=== PATIENT | male | born 1980 | race Hispanic/Latino ===

== ENCOUNTER 2017-04-26 12:57 | Emergency (ER) | payer OTHER ==
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
[2017-04-26 13:58] VITALS: BMI 23.0
[2017-04-26 14:00] LABS: URINE BILIRUBIN NEGATIVE (NEGATIVE); URINE BLOOD NEGATIVE (NEGATIVE); URINE GLUCOSE (UA) NEGATIVE (NEGATIVE); URINE KETONE NEGATIVE (NEGATIVE); URINE LEUKOCYTE ESTERASE NEGATIVE Leu/uL (NEGATIVE); URINE PROTEIN NEGATIVE mg/dL (<30 mg/dL); URINE UROBILINOGEN 0.2 E.U./dL (<1 E.U./dL)
[2017-04-26 14:10] LABS: URINE APPEARANCE CLEAR (CLEAR); URINE COLOR YELLOW (YELLOW)
[2017-04-26 14:13] LABS: BASO # 0.01 K/mm3 (0.0-2.0); BASO % 0.2 % (0.0-3.0); EOS # 0.1 (0.0-0.7); EOS % 0.8 % (1.5-5.0); GRAN # 4.08 (1.4-6.5); GRAN % 69.2 % (50.0-68.0); HEMATOCRIT 42.5 % (42.0-52.0); LYMPH # 1.4 (1.2-3.4); LYMPH % 24.4 % (22.0-35.0); MEAN CELL VOLUME 93.2 fl (80.0-105.0); MEAN CORPUSCULAR HGB CONC 34.4 g/dl (31.0-37.0); MEAN PLATELET VOLUME 8.9 fl (7.0-11.0); MONO # 0.3 (0.1-0.6); MONO % 5.4 % (1.0-6.0); RED CELL DISTRIBUTION WIDTH 15.2 % (11.5-14.5); WHITE BLOOD COUNT 5.9 10^3/ul (4.5-11.0)
[2017-04-26 14:28] LABS: ALB/GLOB RATIO 1.5 (1.1-1.8); ALKALINE PHOSPHATASE 66 U/L (38-126); ALT/SGPT 39 U/L (7-56); AST/SGOT 25 U/L (17-59); BILIRUBIN,TOTAL 0.5 mg/dL (0.2-1.3); BLOOD UREA NITROGEN 7 mg/dL (7-21); CALCIUM 9.2 mg/dL (8.4-10.5); CARBON DIOXIDE 25 mmol/L (21-33); CHLORIDE 112 mmol/L (98-107); GFR AFRICAN-AMERICAN > 60; GLUCOSE,RANDOM 90 mg/dL (70-110); LIPASE 48 U/L (23-300); POTASSIUM 3.5 mmol/L (3.6-5.0); SODIUM 149 mmol/L (132-148); TOTAL PROTEIN 7.6 g/dL (5.8-8.3)
[2017-04-26] MEDS ORDERED: Potassium Chloride 20 mEq ER Tab PO STA (15:35)
--- NOTE | 2017-04-26 16:20 | RAD ---
PROCEDURE: Right Hand Radiographs. HISTORY: trauma COMPARISON: None. FINDINGS: BONES: Normal. No fracture. JOINTS: Normal. No osteoarthritic changes. SOFT TISSUES: Normal. OTHER FINDINGS: None. IMPRESSION: Normal right hand radiographs.
[2017-04-26] MEDS ORDERED: Amoxicillin-Clav 875-125 mg Tab PO STA (16:24)
[2017-04-26] MEDS ORDERED: TDAP Vaccine 0.5 mL Syr IM ONE (17:18)
--- NOTE | 2017-04-26 19:40 | ED PDOC ---
Physical Exam Vital Signs Temp Pulse Resp BP Pulse Ox 04/27/17 04:31 82 17 125/64 98 04/26/17 16:01 80 18 98/57 L 100 04/26/17 14:18 97.9 F 90 17 126/67 99 Medical Decision Making ED Course and Treatment: 04/26/17 19:00 Case endorsed from pending sobriety and PES evaluation. HPI noted. Pt apparently intoxicated, belligerent,violent in ED and flight risk requiring restraints/sedation. Pt. expressed wanting to kill anyone near him. Pt. currently stable resting comfortably. 04/27/17 04:38 Patient was cleared by ALAN Elise earlier but requested to sleep in ED a while longer. Patient is sober with steady gait. Patient is ready and stable for discharge.Pt.still refused any discharge instructions or treatment for his hand wound abrasion - Lab Interpretations Lab Results: 04/26/17 13:54 04/26/17 13:54 Lab Results 04/26/17 13:54: Magnesium 2.5 H 04/26/17 13:54: Alcohol, Quantitative 247 H 04/26/17 13:54: Sodium 149 H, Potassium 3.5 L, Chloride 112 H, Carbon Dioxide 25 , Anion Gap 15, BUN 7, Creatinine 0.6 L, Est GFR ( Amer) > 60, Est GFR ( Non-Af Amer) > 60, Random Glucose 90, Calcium 9.2, Total Bilirubin 0.5, AST 25, ALT 39, Alkaline Phosphatase 66, Total Protein 7.6, Albumin 4.6, Globulin 3.0, Albumin/Globulin Ratio 1.5, Lipase 48 04/26/17 13:54: WBC 5.9, RBC 4.56, Hgb 14.6, Hct 42.5, MCV 93.2, MCH 32.0, MCHC 34.4, RDW 15.2 H, Plt Count 226, MPV 8.9, Gran % 69.2 H, Lymph % (Auto) 24.4, [place] % (Auto) 5.4, Eos % (Auto) 0.8 L, Baso % (Auto) 0.2, Gran # 4.08, Lymph # 1.4, [place] # 0.3, Eos # 0.1, Baso # 0.01 04/26/17 13:52: Urine Opiates Screen Negative, Urine Methadone Screen Negative, Ur Barbiturates Screen Negative, Ur Phencyclidine Scrn Negative, Ur Amphetamines Screen Negative, U Benzodiazepines Scrn Negative, U Oth Cocaine Metabols Negative, U Cannabinoids Screen Positive H 04/26/17 13:52: Urine Color Yellow, Urine Appearance Clear, Urine pH 6.0, Ur Specific [place] <= 1.005, Urine Protein Negative, Urine Glucose (UA) Negative, Urine Ketones Negative, Urine Blood Negative, Urine Nitrate Negative, Urine Bilirubin Negative, Urine Urobilinogen 0.2, Ur Leukocyte Esterase Negative - RAD Interpretation Radiology Orders: 04/26/17 14:15 HAND RIGHT 3 VIEWS [RAD] Stat - Medication Orders Current Medication Orders: Discontinued Medications Amoxicillin/Clavulanate Potassium (Augmentin 875 Mg-125 Mg Tab) 1 tab PO STAT STA PRN Reason: Protocol Stop: 04/26/17 16:25 Last Admin: 04/26/17 17:36 Dose: Haloperidol Lactate (Haldol) 5 mg IM STAT STA PRN Reason: Protocol Stop: 04/26/17 13:23 Last Admin: 04/26/17 13:27 Dose: 5 mg IM Administration Charges Document 04/26/17 13:27 EQ (Rec: 04/26/17 13:27 EQ [id number]) Injection Site MAR Injection Site Right Vastus Lateralis Charges for Administration # of IM Administrations 1 Lorazepam (Ativan) 2 mg IM ONCE ONE PRN Reason: Protocol Stop: 04/26/17 13:24 Last Admin: 04/26/17 13:27 Dose: 2 mg IM Administration Charges Document 04/26/17 13:27 EQ (Rec: 04/26/17 13:27 EQ [id number]) Injection Site MAR Injection Site Right Vastus Lateralis Charges for Administration # of IM Administrations 1 Potassium Chloride (K-Dur 20 Meq Er Tab) 20 meq PO STAT STA Stop: 04/26/17 15:36 Last Admin: 04/26/17 16:06 Dose: Not Given Non-Admin Reason: Patient Refused Tetanus/Reduced Diphtheria/Acell Pertussis (Boostrix Vaccine Inj) 0.5 ml IM .ONCE ONE Stop: 04/26/17 17:19 Last Admin: 04/26/17 17:35 Dose: 0.5 ml MAR Immunization Data Document 04/26/17 17:35 SRE (Rec: 04/26/17 17:35 SRE [id number]) Immunization Data Vaccine Information Sheet Given Yes Immunization Registry Document 04/26/17 17:35 SRE (Rec: 04/26/17 17:35 SRE [id number]) Immunization Registry Consent Date 04/26/17 Disposition/Present on Arrival - Present on Arrival Any Indicators Present on Arrival: No History of DVT/PE: No History of Uncontrolled Diabetes: No Urinary Catheter: No History of Decub. Ulcer: No History Surgical Site Infection Following: None - Disposition Have Diagnosis and Disposition been Completed?: Yes Diagnosis: Alcohol abuse, Hand injury Disposition: HOME/ ROUTINE Disposition Time: 04:38 Patient Plan: Discharge Patient Problems: Current Active Problems Problem Status Onset Alcohol abuse Acute Hand injury Acute Condition: STABLE Discharge Instructions (ExitCare): Alcohol Intoxication (ED), Abrasion (ED) Additional Instructions: Follow up with your doctor this week Prescriptions: Amoxicillin/Clavulanate [Augmentin 875 MG-125 MG] 1 tab PO DAILY 10 Days #20 tab Referrals: Yakelin Madera, [Primary Care Provider] - Follow up with primary Alcoholics Anonymous [Outside] - Follow up with primary
[2017-04-27 04:32] VITALS: BP 125/64; PULSE 82; RESP 17; O2SAT 98
[2017-04-27 04:47] VITALS: TEMP 98
--- NOTE | 2017-04-27 08:12 | CON ---
DATE: 04/26/2017 HISTORY OF PRESENT ILLNESS: The patient is 36-year-old male reports with history of schizoaffective disorder. The patient was brought in by police because the patient was ambulating with unsteady gait and the patient was agitated in the community. This senior medical writer responded to ninoska valentin. The patient was agitated in the process of restrain. The patient was screaming and yelling that he wants to kill himself and kill everybody. The patient also reports that he cannot trust nobody and everybody is against him. This senior medical writer reviewed the previous history. The patient was admitted to the Psychiatric Inpatient Unit in 11/2016 at [facility]. The patient was on Seroquel and Wellbutrin in the past and also, the patient has history of substance abuse. At the moment of interview, there is no option to have meaningful conversation because of the patient's condition. Discussed with the medical staff and discussed with the nursing staff. LABORATORY DATA: Labs reviewed. Sodium is 149, potassium 3.5. Urine toxicology was positive for cannabis and alcohol . MENTAL STATUS EXAMINATION: The patient is agitated. Poor personal hygiene. No eye contact. The patient is screaming and yelling. The patient said "I want to kill everybody. I want to kill myself. I cannot trust you. People against me, they want to poison me." Thought process is disorganized, circumstantial and tangential. Speech was also productive and loud. Insight and judgement are impaired. Impulses are not predictable. IMPRESSION: Per history, the patient has schizoaffective disorder, polysubstance abuse and dependence. PLAN: The patient was medicated. The patient needs to be reevaluated once his hope up. Most likely, the patient needs to have psychiatric admission or screening by [facility]. Should you have any questions, give me a call back. Thank you very much for letting me participate in the care of your patient. Jesica Wheatley MD
== END 2017-04-27 04:47 | disposition home or self-care (01) ==
LOC: ED 12:57
DX: F10.10 Alcohol abuse, uncomplicated (principal); S69.91XA Unspecified injury of right wrist, hand and finger(s), initial encounter; X58.XXXA Exposure to other specified factors, initial encounter; R45.850 Homicidal ideations; F17.210 Nicotine dependence, cigarettes, uncomplicated; Z21 Asymptomatic human immunodeficiency virus [HIV] infection status; Z23 Encounter for immunization
CPT/HCPCS: 73130; 80053; 80320; 80324; 80345; 80346; 80349; 80353; 80358; 80361; 81003; 83690; 83735; 83992; 85025; 90471; 90715; 90791; 96372; 99284; J1630; J2060

== ENCOUNTER 2017-05-05 17:08 | Emergency (ER) | payer OTHER ==
[2017-05-05 17:24] VITALS: BMI 24.3
--- NOTE | 2017-05-05 17:40 | ED PDOC ---
Arrival/HPI - General Time Seen by Provider: 05/05/17 17:18 Historian: Patient - History of Present Illness Narrative History of Present Illness (Text): 05/05/17 17:44 A 36 year old male, whose past medical history includes alcohol and drug abuse, depression and HIV positive, was brought in by EMS to the emergency department for alcohol intoxication. Patient denies any complaints at this time. Symptom Onset: Sudden Symptom Course: Unchanged Activities at Onset: Rest Associated Symptoms (Text): none Past Medical History - Provider Review Nursing Documentation Reviewed: Yes - Past History Past History: No Previous - Infectious Disease Hx of Infectious Diseases: None - Tetanus Immunization Tetanus Immunization: Up to Date, Unknown - Past Medical History Past Medical History: No Previous - Cardiac Hx Hypertension: No - Pulmonary Hx Asthma: Yes Hx Bronchitis: Yes - Neurological Hx Seizures: No - HEENT Hx HEENT Disorder: No - Renal Hx Renal Disorder: No - Endocrine/Metabolic Hx Endocrine Disorders: No - Hematological/Oncological Hx Blood Disorders: Yes Hx Cancer: No Hx Hepatitis C: Yes - Integumentary Hx Dermatological Disorder: No - Musculoskeletal/Rheumatological Hx Musculoskeletal Disorders: Yes Hx Falls: No Other/Comment: SCIATICA - Gastrointestinal Hx Gastrointestinal Disorders: No - Genitourinary/Gynecological Hx Sexually Transmitted Diseases: No - Psychiatric Hx Anxiety: Yes Hx Bipolar Disorder: Yes Hx Depression: Yes (with suicide attempt since childhood (attempted hanging)) Hx Schizophrenia: Yes Hx Substance Use: Yes - Past Surgical History Past Surgical History: Unable to Obtain - Surgical History Other/Comment: tendon repair (right arm) - Anesthesia Hx Anesthesia: Yes Hx Anesthesia Reactions: No - Suicidal Assessment Feels Threatened In Home Enviroment: No Family/Social History - Physician Review Nursing Documentation Reviewed: Yes Family/Social History: No Known Family HX Smoking Status: Heavy Smoker > 10 Cigarettes Daily Hx Alcohol Use: Yes Amount per day: 5 Hx Substance Use: Yes Substance used: Marijuana Hx Substance Use Treatment: No Allergies/Home Meds Allergies/Adverse Reactions: Allergies aspirin Allergy (Verified 05/05/17 17:39) RASH Home Medications: Home Meds Medication Instructions Recorded Confirmed Unobtainable 05/05/17 05/05/17 Review of Systems - Physician Review All systems were reviewed & negative as marked: Yes - Review of Systems Constitutional: absent: Fevers Cardiovascular: absent: Chest Pain Physical Exam Vital Signs Reviewed: Yes Vital Signs Temp Pulse Resp BP Pulse Ox 05/05/17 18:26 98.3 F 82 18 111/78 97 Appearance: Positive for: Comfortable, Other (intoxicated) Pain Distress: None Mental Status: Positive for: Alert and Oriented X 3 - Systems Exam Head: Present: Atraumatic, Normocephalic Pupils: Present: PERRL Extroacular Muscles: Present: EOMI Conjunctiva: Present: Normal Mouth: Present: Moist Mucous Membranes Respiratory/Chest: Present: Clear to Auscultation, Good Air Exchange. No: Respiratory Distress, Accessory Muscle Use Cardiovascular: Present: Regular Rate and Rhythm, Normal S1, S2. No: Murmurs Abdomen: Present: Normal Bowel Sounds. No: Tenderness, Distention, Peritoneal Signs Upper Extremity: Present: Normal Inspection. No: Cyanosis, Edema Lower Extremity: Present: Normal Inspection. No: Edema Neurological: Present: GCS=15, CN II-XII Intact, Other (slurred speech; unsteady gait) Skin: Present: Warm, Dry, Normal Color, Other (upper right eyebrow superficial abrasion; abrasion of left pinky, healing). No: Rashes Psychiatric: Present: Alert, Oriented x 3, Intoxicated, Other (uncooperative behavior) Medical Decision Making ED Course and Treatment: 05/05/17 17:36 Impression: A 36 year old male with alcohol intoxication. Denies any physical complaints. Plan: -- Reassess and disposition Prior Visits: Notes and results from previous visits were reviewed. Patient was last seen in the emergency department on 04/26/17 for evaluation of alcohol intoxication. Progress Notes: Pending sobriety. 05/05/17 17:50 Patient is demonstrating increasing uncooperative behavior. Staff feels patient is a danger to himself with increased fall risk. Restraints and sedation ordered. 05/05/17 21:13 Patient is awake and stable, but still clinically intoxicated. 05/05/17 21:27 More cooperative but remains intoxicated. Discharge when sober. Stable. - Medication Orders Current Medication Orders: Discontinued Medications Ziprasidone (Geodon Inj) 20 mg IM STAT STA PRN Reason: Protocol Stop: 05/05/17 17:47 Last Admin: 05/05/17 17:54 Dose: 20 mg IM Administration Charges Document 05/05/17 17:54 RD (Rec: 05/05/17 17:55 RD [id number]) Injection Site MAR Injection Site Left Deltoid Charges for Administration # of IM Administrations 1 - Scribe Statement The provider has reviewed the documentation as recorded by the Zheng Cr Provider Scribe Attestation: All medical record entries made by the Scribe were at my direction and personally dictated by me. I have reviewed the chart and agree that the record accurately reflects my personal performance of the history, physical exam, medical decision making, and the department course for this patient. I have also personally directed, reviewed, and agree with the discharge instructions and disposition. Disposition/Present on Arrival - Present on Arrival Any Indicators Present on Arrival: No History of DVT/PE: No History of Uncontrolled Diabetes: No Urinary Catheter: No History Surgical Site Infection Following: None - Disposition Have Diagnosis and Disposition been Completed?: No Diagnosis: Alcohol abuse Disposition Time: 21:28 Condition: STABLE Referrals: PCP,NO [Primary Care Provider] - Follow up with primary
--- NOTE | 2017-05-05 21:37 | ED PDOC ---
Physical Exam Vital Signs Temp Pulse Resp BP Pulse Ox 05/06/17 03:09 79 18 122/70 99 05/06/17 00:43 72 17 112/59 L 99 05/05/17 20:40 67 18 102/55 L 100 05/05/17 18:26 98.3 F 82 18 111/78 97 Temperature: Afebrile Blood Pressure: Normal Pulse: Regular Respiratory Rate: Normal Appearance: Positive for: Well-Appearing, Non-Toxic, Comfortable Pain Distress: None Mental Status: Positive for: Alert and Oriented X 3 Finger Stick Blood Glucose: 67 Medical Decision Making ED Course and Treatment: 05/05/17 21:36 Case endorsed to me by Dr. Jonas. Patient is intoxicated and pending sobriety. 05/06/17 01:08 Patient's ex-GF, Maira ([phone]) who says she is the mother of his children, came to the ED and is saying that the patient called her earlier today and said he wanted to kill himself. Will order PES eval. 05/06/17 06:16 The patient was medically cleared for PES evaluation. He was seen by PES who discussed it with psychiatrist, Dr. White, who said the patient may be discharged and was given instructions to follow up with [facility] detox. Will d/c. - Lab Interpretations Lab Results: 05/06/17 01:46 05/06/17 01:46 Lab Results 05/06/17 02:35: Urine Opiates Screen Negative, Urine Methadone Screen Negative, Ur Barbiturates Screen Negative, Ur Phencyclidine Scrn Negative, Ur Amphetamines Screen Negative, U Benzodiazepines Scrn Negative, U Oth Cocaine Metabols Negative, U Cannabinoids Screen Positive H 05/06/17 02:35: Urine Color Yellow, Urine Appearance Clear, Urine pH 6.0, Ur Specific Worthing 1.020, Urine Protein Negative, Urine Glucose (UA) Negative, Urine Ketones Negative, Urine Blood Negative, Urine Nitrate Negative, Urine Bilirubin Negative, Urine Urobilinogen 0.2, Ur Leukocyte Esterase Negative 05/06/17 01:46: Alcohol, Quantitative 170 H 05/06/17 01:46: Salicylates < 1 L, Acetaminophen < 10.0 L 05/06/17 01:46: Sodium 148, Potassium 3.6, Chloride 110 H, Carbon Dioxide 27, Anion Gap 15, BUN 9, Creatinine 0.8, Est GFR ( Amer) > 60, Est GFR (Non- Af Amer) > 60, Random Glucose 67 L, Calcium 8.6, Total Bilirubin 0.5, AST 33, ALT 46, Alkaline Phosphatase 76, Total Creatine Kinase 234 H, CK-MB (CK-2) 2.9, CK-MB (CK-2) % Cancelled, Total Protein 7.1, Albumin 4.2, Globulin 3.0, Albumin/ Globulin Ratio 1.4, Lipase 43 05/06/17 01:46: WBC 5.8, RBC 4.57, Hgb 14.5, Hct 42.7, MCV 93.4, MCH 31.7, MCHC 34.0, RDW 15.8 H, Plt Count 230, MPV 8.7, Gran % 43.3 L, Lymph % (Auto) 43.9 H, Bartholomew % (Auto) 10.1 H, Eos % (Auto) 2.2, Baso % (Auto) 0.5, Gran # 2.52, Lymph # 2.6, Bartholomew # 0.6, Eos # 0.1, Baso # 0.03 - RAD Interpretation Narrative RAD Interpretations (Text): 05/06/17 02:07 CXR: nad as read by me. Radiology Orders: 05/06/17 01:06 CHEST PORTABLE [RAD] Stat - EKG Interpretation EKG Interpretation (Text): 05/06/17 02:07 NSR @ 81 with incomplete RBBB ; QRS is 106; unchanged from previous; normal intervals; normal axis; no ST/T changes. Interpreted by ED Physician: Yes Type: 12 lead EKG Comparison: Similar to previous EKG (04/19/17) - Medication Orders Current Medication Orders: Discontinued Medications Ziprasidone (Geodon Inj) 20 mg IM STAT STA PRN Reason: Protocol Stop: 05/05/17 17:47 Last Admin: 05/05/17 17:54 Dose: 20 mg IM Administration Charges Document 05/05/17 17:54 RD (Rec: 05/05/17 17:55 RD [id number]) Injection Site MAR Injection Site Left Deltoid Charges for Administration # of IM Administrations 1 - Scribe Statement The provider has reviewed the documentation as recorded by the Scribe Alaa Saadia Provider Scribe Attestation: All medical record entries made by the Scribe were at my direction and personally dictated by me. I have reviewed the chart and agree that the record accurately reflects my personal performance of the history, physical exam, medical decision making, and the department course for this patient. I have also personally directed, reviewed, and agree with the discharge instructions and disposition. Disposition/Present on Arrival - Present on Arrival Any Indicators Present on Arrival: No History of DVT/PE: No History of Uncontrolled Diabetes: No Urinary Catheter: No History of Decub. Ulcer: No History Surgical Site Infection Following: None - Disposition Have Diagnosis and Disposition been Completed?: Yes Diagnosis: Alcohol abuse, Drug abuse Disposition: HOME/ ROUTINE Disposition Time: 06:20 Patient Plan: Discharge Patient Problems: Current Active Problems Problem Status Onset Alcohol abuse Acute Condition: STABLE Additional Instructions: Stop alcohol use. Follow up with [facility]. Return to the emergency department if any new concerning symptoms. Referrals: PCP,NO [Primary Care Provider] - Follow up with primary
[2017-05-06 01:56] LABS: BASO # 0.03 K/mm3 (0.0-2.0); BASO % 0.5 % (0.0-3.0); EOS # 0.1 (0.0-0.7); EOS % 2.2 % (1.5-5.0); GRAN # 2.52 (1.4-6.5); GRAN % 43.3 % (50.0-68.0); HEMATOCRIT 42.7 % (42.0-52.0); LYMPH # 2.6 (1.2-3.4); LYMPH % 43.9 % (22.0-35.0); MEAN CELL VOLUME 93.4 fl (80.0-105.0); MEAN CORPUSCULAR HEMOGLOBIN 31.7 pg (25.0-35.0); MEAN PLATELET VOLUME 8.7 fl (7.0-11.0); MONO # 0.6 (0.1-0.6); MONO % 10.1 % (1.0-6.0); RED CELL DISTRIBUTION WIDTH 15.8 % (11.5-14.5); WHITE BLOOD COUNT 5.8 10^3/ul (4.5-11.0)
[2017-05-06 02:09] LABS: ALB/GLOB RATIO 1.4 (1.1-1.8); ALKALINE PHOSPHATASE 76 U/L (38-126); ALT/SGPT 46 U/L (7-56); AST/SGOT 33 U/L (17-59); BILIRUBIN,TOTAL 0.5 mg/dL (0.2-1.3); BLOOD UREA NITROGEN 9 mg/dL (7-21); CALCIUM 8.6 mg/dL (8.4-10.5); CARBON DIOXIDE 27 mmol/L (21-33); CHLORIDE 110 mmol/L (98-107); GFR AFRICAN-AMERICAN > 60; GLUCOSE,RANDOM 67 mg/dL (70-110); LIPASE 43 U/L (23-300); POTASSIUM 3.6 mmol/L (3.6-5.0); SODIUM 148 mmol/L (132-148); TOTAL PROTEIN 7.1 g/dL (5.8-8.3)
[2017-05-06 03:04] LABS: URINE BILIRUBIN NEGATIVE (NEGATIVE); URINE BLOOD NEGATIVE (NEGATIVE); URINE GLUCOSE (UA) NEGATIVE (NEGATIVE); URINE KETONE NEGATIVE (NEGATIVE); URINE LEUKOCYTE ESTERASE NEGATIVE Leu/uL (NEGATIVE); URINE PROTEIN NEGATIVE mg/dL (<30 mg/dL); URINE UROBILINOGEN 0.2 E.U./dL (<1 E.U./dL)
[2017-05-06 03:09] LABS: URINE APPEARANCE CLEAR (CLEAR); URINE COLOR YELLOW (YELLOW)
[2017-05-06 06:33] VITALS: BP 128/69; PULSE 80; RESP 16; TEMP 98.6; O2SAT 98
--- NOTE | 2017-05-06 08:50 | RAD ---
HISTORY: psych COMPARISON: 04/10/2014 FINDINGS: LUNGS: No active pulmonary disease. PLEURA: No significant pleural effusion identified, no pneumothorax apparent. CARDIOVASCULAR: Normal. OSSEOUS STRUCTURES: No significant abnormalities. VISUALIZED UPPER ABDOMEN: Normal. OTHER FINDINGS: None. IMPRESSION: No active disease.
--- NOTE | 2017-05-07 09:37 | CARD ---
APPROVED REPORT EKG Measurement Heart [id number] <Conclusion> Normal sinus rhythm Incomplete right bundle branch block Prolonged QTc, new
== END 2017-05-06 06:35 | disposition home or self-care (01) ==
LOC: ED 17:08
DX: F10.129 Alcohol abuse with intoxication, unspecified (principal); F19.10 Other psychoactive substance abuse, uncomplicated; F17.210 Nicotine dependence, cigarettes, uncomplicated
CPT/HCPCS: 71010; 80053; 80320; 80324; 80329; 80345; 80346; 80349; 80353; 80358; 80361; 81003; 82550; 82553; 83690; 83992; 85025; 93005; 96372; 99285; J3486

== ENCOUNTER 2017-05-06 20:01 | Emergency (ER) | payer OTHER ==
[2017-05-06 20:01] VITALS: BMI 24.3
--- NOTE | 2017-05-06 20:30 | ED PDOC ---
Arrival/HPI - General Chief Complaint: Alcohol Ingestion Time Seen by Provider: 05/06/17 20:04 Historian: Patient, EMS, Police - History of Present Illness Narrative History of Present Illness (Text): 05/06/17 20:10 A 36 year old male, whose past medical history includes etoh and marijuana abuse , presents to the emergency department for public intoxication via EMS and [employer]. The patient was found resting in a public hallway. The patient has been treated to the emergency department on multiple occasions for the same symptoms. His last visit was yesterday with the same presentation. The patient admits to drinking and states he wants to leave. He denies any complaints at this time. HPI & ROS limitations due to patient's state of intoxication. Time/Duration: Prior to Arrival Symptom Onset: Gradual Symptom Course: Other Activities at Onset: Other (drinking ) Context: Other (public ) Past Medical History - Provider Review Nursing Documentation Reviewed: Yes - Past History Past History: No Previous - Infectious Disease Hx of Infectious Diseases: None - Tetanus Immunization Tetanus Immunization: Up to Date, Unknown - Past Medical History Past Medical History: No Previous - Cardiac Hx Cardiac Disorders: No Hx Hypertension: No - Pulmonary Hx Tuberculosis: No - Neurological HX Cerebrovascular Accident: No Hx Seizures: No - HEENT Hx HEENT Disorder: No - Renal Hx Renal Disorder: No - Endocrine/Metabolic Hx Endocrine Disorders: No - Hematological/Oncological Hx Cancer: No - Integumentary Hx Dermatological Disorder: No - Musculoskeletal/Rheumatological Hx Musculoskeletal Disorders: Yes Hx Falls: No Other/Comment: SCIATICA - Gastrointestinal Hx Gastrointestinal Disorders: No - Genitourinary/Gynecological Hx Sexually Transmitted Diseases: No - Psychiatric Hx Anxiety: Yes Hx Bipolar Disorder: Yes Hx Depression: Yes (with suicide attempt since childhood (attempted hanging)) Hx Schizophrenia: Yes Hx Substance Use: Yes - Past Surgical History Past Surgical History: Unable to Obtain - Surgical History Other/Comment: tendon repair (right arm) - Anesthesia Hx Anesthesia: Yes Hx Anesthesia Reactions: No - Suicidal Assessment Feels Threatened In Home Enviroment: No Family/Social History - Physician Review Nursing Documentation Reviewed: Yes Family/Social History: No Known Family HX Smoking Status: Heavy Smoker > 10 Cigarettes Daily Hx Alcohol Use: Yes Amount per day: 5 Hx Substance Use: Yes Substance used: Marijuana Hx Substance Use Treatment: No Allergies/Home Meds Allergies/Adverse Reactions: Allergies aspirin Allergy (Verified 05/05/17 17:39) RASH Home Medications: Home Meds Medication Instructions Recorded Confirmed Unobtainable 05/05/17 05/07/17 Review of Systems - Physician Review All systems were reviewed & negative as marked: Yes - Review of Systems Systems not reviewed;Unavailable: Intoxicated Constitutional: absent: Fevers Respiratory: absent: SOB Cardiovascular: absent: Chest Pain Gastrointestinal: absent: Abdominal Pain Psychiatric: absent: Suicidal Ideation Physical Exam - Physical Exam Physical Exam Limitations: Intoxication Vital Signs Reviewed: Yes Vital Signs Temp Pulse Resp BP Pulse Ox 05/07/17 03:00 80 20 110/76 96 05/06/17 23:32 70 18 106/62 100 05/06/17 20:01 98.9 F 68 20 126/73 100 - Systems Exam Head: Present: Atraumatic, Normocephalic Pupils: Present: PERRL Extroacular Muscles: Present: EOMI Conjunctiva: Present: Normal Mouth: Present: Moist Mucous Membranes Neck: Present: Normal Range of Motion Respiratory/Chest: Present: Clear to Auscultation, Good Air Exchange. No: Respiratory Distress, Accessory Muscle Use Cardiovascular: Present: Regular Rate and Rhythm, Normal S1, S2. No: Murmurs Abdomen: Present: Normal Bowel Sounds. No: Tenderness, Distention, Peritoneal Signs Back: Present: Normal Inspection Upper Extremity: Present: Normal Inspection. No: Cyanosis, Edema Lower Extremity: Present: Normal Inspection. No: Edema Neurological: Present: GCS=15, CN II-XII Intact, Speech Normal Skin: Present: Warm, Dry, Normal Color. No: Rashes Psychiatric: Present: Alert, Oriented x 3, Normal Insight, Normal Concentration Medical Decision Making ED Course and Treatment: 05/06/17 20:20 Impression: A 36 year old male brought in for intoxication. Differential Diagnosis included but are not limited to: alcohol intoxication Plan: -- Ativan, Haldol -- Restraints -- Reassess and disposition Prior Visits: Notes and results from previous visits were reviewed. Patient was last seen in the emergency department on Progress Notes: 05/06/17 20:22 The patient is attempting to leave and is verbally abusive. He had to be placed in restraints and sedated for his own protection. 05/07/17 07:08 Pt. is awake,alert sober with steady gait. - Medication Orders Current Medication Orders: Discontinued Medications Haloperidol Lactate (Haldol) 5 mg IM STAT STA PRN Reason: Protocol Stop: 05/06/17 20:19 Last Admin: 05/06/17 20:26 Dose: 5 mg IM Administration Charges Document 05/06/17 20:26 CELE (Rec: 05/06/17 20:26 CELE [id number]) Injection Site MAR Injection Site Left Deltoid Charges for Administration # of IM Administrations 1 Lorazepam (Ativan) 2 mg IM ONCE ONE Stop: 05/06/17 20:19 Last Admin: 05/06/17 20:26 Dose: 2 mg IM Administration Charges Document 05/06/17 20:26 CELE (Rec: 05/06/17 20:26 CELE [id number]) Injection Site MAR Injection Site Left Deltoid Charges for Administration # of IM Administrations 1 - Scribe Statement The provider has reviewed the documentation as recorded by the Scribe Janice Skaggs Provider Scribe Attestation: All medical record entries made by the Scribe were at my direction and personally dictated by me. I have reviewed the chart and agree that the record accurately reflects my personal performance of the history, physical exam, medical decision making, and the department course for this patient. I have also personally directed, reviewed, and agree with the discharge instructions and disposition. Disposition/Present on Arrival - Present on Arrival Any Indicators Present on Arrival: No History of DVT/PE: No History of Uncontrolled Diabetes: No Urinary Catheter: No History of Decub. Ulcer: No History Surgical Site Infection Following: None - Disposition Have Diagnosis and Disposition been Completed?: Yes Diagnosis: Alcohol intoxication Disposition: HOME/ ROUTINE Disposition Time: 07:07 Patient Plan: Discharge Condition: STABLE Discharge Instructions (ExitCare): Alcohol Intoxication (ED) Referrals: Yakelin Madera, [Primary Care Provider] - Follow up with primary Alcoholics Anonymous [Outside] - Follow up with primary Forms: [employer] (Swazi)
[2017-05-06 21:46] VITALS: TEMP 98.9
[2017-05-07 07:10] VITALS: RESP 18
[2017-05-07 07:15] VITALS: BP 123/75; PULSE 81; O2SAT 99
== END 2017-05-07 07:20 | disposition home or self-care (01) ==
LOC: ED 20:01
DX: F10.129 Alcohol abuse with intoxication, unspecified (principal); F17.210 Nicotine dependence, cigarettes, uncomplicated
CPT/HCPCS: 96372; 99285; J1630; J2060

== ENCOUNTER 2017-05-07 15:54 | Emergency (ER) | payer OTHER ==
[2017-05-07 16:07] VITALS: BMI 22.9
[2017-05-07 16:36] VITALS: TEMP 98.5
--- NOTE | 2017-05-07 18:24 | CT ---
EXAM: CT Head Without Intravenous Contrast CLINICAL HISTORY: 36 years old, male; Injury or trauma; Injury Head injury; Initial encounter; Concussion / head injury TECHNIQUE: Axial computed tomography images of the head/brain without intravenous contrast. All CT scans at this facility use one or more dose reduction techniques, viz.: automated exposure control; ma/kV adjustment per patient size (including targeted exams where dose is matched to indication; i.e. head); or iterative reconstruction technique. COMPARISON: No relevant prior studies available. FINDINGS: Brain: No intracranial hemorrhage. No mass. No edema. Ventricles: No hydrocephalus. Bones/joints: No acute fracture. Soft tissues: Unremarkable. Sinuses: Scattered minimal mucosal thickening. Mastoid air cells: No mastoid effusion. Orbits: Unremarkable as visualized. IMPRESSION: 1. No intracranial hemorrhage. 2. Incidental/non-acute findings are described above.
[2017-05-07 22:36] VITALS: RESP 18
[2017-05-08 00:01] VITALS: BP 131/89; PULSE 92; O2SAT 99
--- NOTE | 2017-05-08 00:11 | ED PDOC ---
Arrival/HPI - General Chief Complaint: Alcohol Ingestion Time Seen by Provider: 05/07/17 15:58 Historian: Patient - History of Present Illness Narrative History of Present Illness (Text): 05/07/17 23:59 36yo male biba for alcohol intoxication. Per EMS patient was picked up from the street, intoxicated. Patient was intoxicated, lethargic on arrival. He was unable to answer any question. Pt is known to the ED for alcohol abuse. He has been seen here multiple times for same complaint. His last visit was yesterday. Past Medical History - Provider Review Nursing Documentation Reviewed: Yes - Past History Past History: No Previous - Infectious Disease Hx of Infectious Diseases: None - Tetanus Immunization Tetanus Immunization: Up to Date, Unknown - Past Medical History Past Medical History: No Previous - Cardiac Hx Cardiac Disorders: No Hx Hypertension: No - Pulmonary Hx Tuberculosis: No - Neurological HX Cerebrovascular Accident: No Hx Seizures: No - HEENT Hx HEENT Disorder: No - Renal Hx Renal Disorder: No - Endocrine/Metabolic Hx Endocrine Disorders: No - Hematological/Oncological Hx Cancer: No - Integumentary Hx Dermatological Disorder: No - Musculoskeletal/Rheumatological Hx Musculoskeletal Disorders: Yes Hx Falls: Yes Other/Comment: SCIATICA - Gastrointestinal Hx Gastrointestinal Disorders: No - Genitourinary/Gynecological Hx Sexually Transmitted Diseases: No - Psychiatric Hx Anxiety: Yes Hx Bipolar Disorder: Yes Hx Depression: Yes (with suicide attempt since childhood (attempted hanging)) Hx Schizophrenia: Yes Hx Substance Use: Yes - Past Surgical History Past Surgical History: Unable to Obtain - Surgical History Other/Comment: tendon repair (right arm) - Anesthesia Hx Anesthesia: Yes Hx Anesthesia Reactions: No - Suicidal Assessment Feels Threatened In Home Enviroment: No Family/Social History - Physician Review Nursing Documentation Reviewed: Yes Family/Social History: Unknown Family HX Smoking Status: Heavy Smoker > 10 Cigarettes Daily Hx Alcohol Use: Yes (ETOH) Frequency of alcohol use: Daily Amount per day: 5 Hx Substance Use: Yes Substance used: Marijuana Hx Substance Use Treatment: No Allergies/Home Meds Allergies/Adverse Reactions: Allergies aspirin Allergy (Verified 05/07/17 16:07) RASH Home Medications: Home Meds Medication Instructions Recorded Confirmed Unobtainable 05/05/17 05/07/17 Review of Systems - Review of Systems Systems not reviewed;Unavailable: Intoxicated Physical Exam Vital Signs Reviewed: Yes Vital Signs Temp Pulse Resp BP Pulse Ox 05/08/17 00:00 92 H 18 131/89 99 05/07/17 22:15 67 18 114/60 100 05/07/17 18:21 79 16 106/65 100 05/07/17 16:06 98.5 F 87 16 127/88 97 Temperature: Afebrile Blood Pressure: Normal Pulse: Regular Respiratory Rate: Normal Appearance: Positive for: Well-Appearing, Non-Toxic, Comfortable Pain Distress: None Mental Status: Positive for: Alert and Oriented X 3 Finger Stick Blood Glucose: 80 - Systems Exam Head: Present: Atraumatic, Normocephalic Pupils: Present: PERRL Extroacular Muscles: Present: EOMI, Other (bruise with superficial abrasion noted on right norah ortbital/forehead area. No swelling) Conjunctiva: Present: Normal Mouth: Present: Moist Mucous Membranes Neck: Present: Normal Range of Motion Respiratory/Chest: Present: Clear to Auscultation, Good Air Exchange. No: Respiratory Distress, Accessory Muscle Use Cardiovascular: Present: Regular Rate and Rhythm, Normal S1, S2. No: Murmurs Abdomen: Present: Normal Bowel Sounds. No: Tenderness, Distention, Peritoneal Signs Back: Present: Normal Inspection Upper Extremity: Present: Normal Inspection. No: Cyanosis, Edema Lower Extremity: Present: Normal Inspection. No: Edema Neurological: Present: GCS=15, CN II-XII Intact, Speech Normal Skin: Present: Warm, Dry, Normal Color. No: Rashes Psychiatric: Present: Intoxicated Medical Decision Making ED Course and Treatment: 05/08/17 00:12 PT slept comfortably in ED. He was hemodynamically stable. He was observed in ED for sobriety. He woke up and asked for food. He was fed. He asked for anxiolytic and Ativan was given. He went back to sleep. On waking up he was noted to be stable with steady gait. he asked to be discharged home and was discharged. - RAD Interpretation Radiology Orders: 05/07/17 17:21 HEAD W/O CONTRAST [CT] Stat - Medication Orders Current Medication Orders: Discontinued Medications Acetaminophen (Tylenol 325mg Tab) 650 mg PO STAT STA Stop: 05/07/17 21:36 Last Admin: 05/07/17 21:43 Dose: 650 mg MAR Pain/Vitals Document 05/07/17 21:43 RD (Rec: 05/07/17 21:43 RD [id number]) Pain Reassessment Is This A Pain ReAssessment? No Sleep Is patient sleeping during reassessment? No Presence of Pain Presence of Pain Yes Location Left, Right or Bilateral Right Pain Location Body Site Arm Lorazepam (Ativan) 1 mg IM ONCE ONE PRN Reason: Protocol Stop: 05/07/17 21:13 Last Admin: 05/07/17 21:23 Dose: 1 mg IM Administration Charges Document 05/07/17 21:23 RD (Rec: 05/07/17 21:23 RD [id number]) Injection Site MAR Injection Site Right Deltoid Charges for Administration # of IM Administrations 1 Disposition/Present on Arrival - Present on Arrival Any Indicators Present on Arrival: No History of DVT/PE: No History of Uncontrolled Diabetes: No Urinary Catheter: No History of Decub. Ulcer: No History Surgical Site Infection Following: None - Disposition Have Diagnosis and Disposition been Completed?: Yes Diagnosis: Alcohol intoxication Disposition: HOME/ ROUTINE Disposition Time: 00:05 Patient Plan: Discharge Condition: STABLE Discharge Instructions (ExitCare): Alcohol Intoxication (ED) Additional Instructions: Stop drinking alcohol and join AA Return to ED for new symptoms Referrals: Appear Heredomo Madera, [Primary Care Provider] - Follow up with primary Forms: [employer] (Uzbek)
== END 2017-05-08 00:15 | disposition home or self-care (01) ==
LOC: ED 15:54
DX: F10.129 Alcohol abuse with intoxication, unspecified (principal); F17.210 Nicotine dependence, cigarettes, uncomplicated
CPT/HCPCS: 70450; 90791; 96372; 99285; J2060

== ENCOUNTER 2017-05-09 13:44 | Emergency (ER) | payer OTHER ==
[2017-05-09 13:45] VITALS: BMI 22.9
[2017-05-09] MEDS ORDERED: DiphenhydrAMINE 50 mg/ml Inj IM STA (14:14)
--- NOTE | 2017-05-09 14:51 | RAD ---
HISTORY: psych COMPARISON: 05/06/2017 FINDINGS: LUNGS: No active pulmonary disease. PLEURA: No significant pleural effusion identified, no pneumothorax apparent. CARDIOVASCULAR: Normal. OSSEOUS STRUCTURES: No significant abnormalities. VISUALIZED UPPER ABDOMEN: Normal. OTHER FINDINGS: None. IMPRESSION: No active disease.
[2017-05-09 14:56] LABS: URINE BILIRUBIN NEGATIVE (NEGATIVE); URINE BLOOD TRACE-INTACT (NEGATIVE); URINE GLUCOSE (UA) NEGATIVE (NEGATIVE); URINE KETONE NEGATIVE (NEGATIVE); URINE LEUKOCYTE ESTERASE NEGATIVE Leu/uL (NEGATIVE); URINE PROTEIN TRACE mg/dL (<30 mg/dL); URINE UROBILINOGEN 0.2 E.U./dL (<1 E.U./dL)
[2017-05-09 15:01] LABS: URINE APPEARANCE CLEAR (CLEAR); URINE COLOR YELLOW (YELLOW)
[2017-05-09 15:07] LABS: BASO # 0.02 K/mm3 (0.0-2.0); BASO % 0.4 % (0.0-3.0); EOS # 0.1 (0.0-0.7); EOS % 1.4 % (1.5-5.0); GRAN # 3.22 (1.4-6.5); GRAN % 63.1 % (50.0-68.0); HEMATOCRIT 40.5 % (42.0-52.0); LYMPH # 1.3 (1.2-3.4); LYMPH % 25.1 % (22.0-35.0); MEAN CELL VOLUME 92.5 fl (80.0-105.0); MEAN CORPUSCULAR HGB CONC 34.6 g/dl (31.0-37.0); MEAN PLATELET VOLUME 8.9 fl (7.0-11.0); MONO # 0.5 (0.1-0.6); RED CELL DISTRIBUTION WIDTH 15.5 % (11.5-14.5); WHITE BLOOD COUNT 5.1 10^3/ul (4.5-11.0)
--- NOTE | 2017-05-09 15:12 | ED PDOC ---
Arrival/HPI - General Chief Complaint: Alcohol Ingestion Time Seen by Provider: 05/09/17 14:05 Historian: Patient - History of Present Illness Narrative History of Present Illness (Text): 05/09/17 15:08 36 yo male with h/o alcohol abuse and psych, presents to the ED via EMS who state that he reported that he was going to jump out of the window and hurt himself with a knife prior to arrival. He states that he didn't say that and that the girl that reported this stated that because she is upset he won't be with her any longer. He denies any suicidal ideation or homicidal ideation. He denies any delusions or hallucinations. He admits to drinking alcohol today. Denies any drug use. PMD: None Past Medical History - Provider Review Nursing Documentation Reviewed: Yes - Past History Past History: No Previous - Infectious Disease Hx of Infectious Diseases: None - Tetanus Immunization Tetanus Immunization: Up to Date, Unknown - Past Medical History Past Medical History: No Previous - Cardiac Hx Cardiac Disorders: No Hx Hypertension: No - Pulmonary Hx Respiratory Disorders: No Hx Tuberculosis: No - Neurological HX Cerebrovascular Accident: No Hx Seizures: No - HEENT Hx HEENT Disorder: No - Renal Hx Renal Disorder: No - Endocrine/Metabolic Hx Endocrine Disorders: No - Hematological/Oncological Hx Cancer: No - Integumentary Hx Dermatological Disorder: No - Musculoskeletal/Rheumatological Hx Musculoskeletal Disorders: Yes Hx Falls: Yes Other/Comment: SCIATICA - Gastrointestinal Hx Gastrointestinal Disorders: No - Genitourinary/Gynecological Hx Sexually Transmitted Diseases: No - Psychiatric Hx Anxiety: Yes Hx Bipolar Disorder: Yes Hx Depression: Yes (with suicide attempt since childhood (attempted hanging)) Hx Schizophrenia: Yes Hx Substance Use: Yes - Past Surgical History Past Surgical History: Unable to Obtain - Surgical History Other/Comment: tendon repair (right arm) - Anesthesia Hx Anesthesia: Yes Hx Anesthesia Reactions: No - Suicidal Assessment Feels Threatened In Home Enviroment: No Family/Social History - Physician Review Nursing Documentation Reviewed: Yes Family/Social History: Unknown Family HX Smoking Status: Heavy Smoker > 10 Cigarettes Daily Hx Alcohol Use: Yes (ETOH) Amount per day: 5 Hx Substance Use: Yes Substance used: Marijuana Hx Substance Use Treatment: No Allergies/Home Meds Allergies/Adverse Reactions: Allergies aspirin Allergy (Verified 05/07/17 16:07) RASH Home Medications: Home Meds Medication Instructions Recorded Confirmed No Known Home Med 05/09/17 05/09/17 Review of Systems - Physician Review All systems were reviewed & negative as marked: Yes - Review of Systems Constitutional: Normal Eyes: Normal ENT: Normal Respiratory: Normal Cardiovascular: Normal Gastrointestinal: Normal Genitourinary Male: Normal Musculoskeletal: Normal Skin: Normal Neurological: Normal Endocrine: Normal Hemo/Lymphatic: Normal Psychiatric: Suicidal Ideation (reported by EMS). absent: Anxiety, Depression Physical Exam Vital Signs Reviewed: Yes Vital Signs Temp Pulse Resp BP Pulse Ox 05/09/17 22:10 78 18 114/74 99 05/09/17 20:00 75 17 110/72 99 05/09/17 18:00 82 17 120/81 99 05/09/17 16:49 84 16 118/75 100 05/09/17 15:00 98.2 F 88 18 117/71 96 05/09/17 14:00 85 18 120/75 100 Temperature: Afebrile Blood Pressure: Normal Pulse: Regular Respiratory Rate: Normal Appearance: Positive for: Well-Appearing, Non-Toxic, Comfortable Pain Distress: None Mental Status: Positive for: Alert and Oriented X 3 - Systems Exam Head: Present: Atraumatic, Normocephalic, Ecchymosis, Other (superorbital ecchymosis that is healing). No: Tenderness, Contusion, Swelling Pupils: Present: PERRL, Other (No hyphemia; no pain with eye movement) Extroacular Muscles: Present: EOMI. No: Gaze Palsy, Entrapment Conjunctiva: Present: Normal Mouth: Present: Moist Mucous Membranes Pharnyx: Present: Normal. No: ERYTHEMA, EXUDATE Nose (External): Present: Atraumatic Nose (Internal): Present: Normal Inspection Neck: Present: Normal Range of Motion Respiratory/Chest: Present: Clear to Auscultation, Good Air Exchange. No: Respiratory Distress, Accessory Muscle Use Cardiovascular: Present: Regular Rate and Rhythm, Normal S1, S2. No: Murmurs Abdomen: Present: Normal Bowel Sounds. No: Tenderness, Distention, Peritoneal Signs Back: Present: Normal Inspection Upper Extremity: Present: Normal Inspection. No: Cyanosis, Edema Lower Extremity: Present: Normal Inspection. No: Edema Neurological: Present: GCS=15, CN II-XII Intact, Motor Func Grossly Intact, Normal Sensory Function. No: Speech Normal (slurred speech), Gait Normal ( ataxia) Skin: Present: Warm, Dry, Normal Color. No: Rashes Psychiatric: Present: Alert, Oriented x 3 Medical Decision Making ED Course and Treatment: 05/09/17 15:13 36 yo male with alcohol intoxication and reported suicidal ideation -- Labs -- CXR, EKG -- CT Head reviewed from recent visit and it was negative -- Urine drug screen Patient was uncooperative in the ED and wanted to walk out. He state that he doesn't want to stay to get evaluated by psych. I tried to explain to him the importance of getting reevaluated in the ED and possibly be evaluated by psych but he refused to stay. He was given some time to think it over and still was very uncooperative. I tried to explain to him again but he started getting angry and raising his voice. I ordered Ativan, Haldol and Benadryl to help sedate patient for his safety and safety of our staff. 05/09/17 15:16 NSR at [address] elevations, incomplete RBBB 05/09/2017 15:27 Chest X-ray IMPRESSION: No active disease. Dictator: Jose Sood MD 05/09/17 17:10 Patient's fianceMirella ([phone]) called. She states that he was trying to jump out of the 3rd floor window and that he was trying to stab himself with a screwdriver and knife but she managed to get these away from him. She then called the police. 05/09/17 22:36 Patient is alert awake and oriented x 3. He has no slurred speech or ataxia. He states he did not want to jump out of the window nor try to injure himself with anything. He was just drunk and didn't mean it at all. He is no longer clinically intoxicated. ALAN Gimenez evaluated patient and discussed the case with Dr. Willett. Dr. Willett and I discussed the case as well and from his assessment and from previous patient visit he feels that the patient is abusing alcohol and should go to a rehab center. He does not feel that the patient needs to be admitted for any psychiatric service. Patient agrees to go to a rehab center and he agrees that he does not want to stay for admission. - Lab Interpretations Lab Results: 05/09/17 14:48 05/09/17 14:48 Lab Results 05/09/17 14:48: Alcohol, Quantitative 291 H 05/09/17 14:48: Salicylates < 1 L, Acetaminophen < 10.0 L 05/09/17 14:48: Sodium 145, Potassium 4.0, Chloride 105, Carbon Dioxide 29, Anion Gap 15, BUN 6 L, Creatinine 0.7 L, Est GFR ( Amer) > 60, Est GFR ( Non-Af Amer) > 60, Random Glucose 105, Calcium 8.9, Total Bilirubin 0.7, AST 68 H D, ALT 59 H, Alkaline Phosphatase 82, Total Protein 7.3, Albumin 4.4, Globulin 3.0, Albumin/Globulin Ratio 1.5 05/09/17 14:48: WBC 5.1, RBC 4.38, Hgb 14.0, Hct 40.5 L, MCV 92.5, MCH 32.0, MCHC 34.6, RDW 15.5 H, Plt Count 205, MPV 8.9, Gran % 63.1, Lymph % (Auto) 25.1 , [place] % (Auto) 10.0 H, Eos % (Auto) 1.4 L, Baso % (Auto) 0.4, Gran # 3.22, Lymph # 1.3, [place] # 0.5, Eos # 0.1, Baso # 0.02 05/09/17 14:30: Urine Opiates Screen Negative, Urine Methadone Screen Negative, Ur Barbiturates Screen Negative, Ur Phencyclidine Scrn Negative, Ur Amphetamines Screen Negative, U Benzodiazepines Scrn Negative, U Oth Cocaine Metabols Negative, U Cannabinoids Screen Positive H 05/09/17 14:30: Urine Color Yellow, Urine Appearance Clear, Urine pH 6.0, Ur Specific [place] 1.015, Urine Protein Trace H, Urine Glucose (UA) Negative, Urine Ketones Negative, Urine Blood Trace-intact H, Urine Nitrate Negative, Urine Bilirubin Negative, Urine Urobilinogen 0.2, Ur Leukocyte Esterase Negative , Urine RBC 0 - 2, Urine WBC 0 - 2, Ur Epithelial Cells 0 - 2, Urine Bacteria Mod - RAD Interpretation Radiology Orders: 05/09/17 14:16 CXR [CHEST PORTABLE] [RAD] Stat - Medication Orders Current Medication Orders: Discontinued Medications Diphenhydramine HCl (Benadryl) 25 mg IM STAT STA Stop: 05/09/17 14:15 Last Admin: 05/09/17 14:20 Dose: 25 mg IM Administration Charges Document 05/09/17 14:20 SF (Rec: 05/09/17 14:20 SF [id number]) Injection Site MAR Injection Site Right Deltoid Charges for Administration # of IM Administrations 1 Haloperidol Lactate (Haldol) 5 mg IM STAT STA PRN Reason: Protocol Stop: 05/09/17 14:15 Last Admin: 05/09/17 14:20 Dose: 5 mg IM Administration Charges Document 05/09/17 14:20 SF (Rec: 05/09/17 14:21 SF [id number]) Injection Site MAR Injection Site Left Deltoid Charges for Administration # of IM Administrations 1 Lorazepam (Ativan) 2 mg IM ONCE ONE PRN Reason: Protocol Stop: 05/09/17 14:15 Last Admin: 05/09/17 14:20 Dose: 2 mg IM Administration Charges Document 05/09/17 14:20 SF (Rec: 05/09/17 14:20 SF [id number]) Injection Site MAR Injection Site Left Deltoid Charges for Administration # of IM Administrations 1 Disposition/Present on Arrival - Present on Arrival Any Indicators Present on Arrival: No History of DVT/PE: No History of Uncontrolled Diabetes: No Urinary Catheter: No History of Decub. Ulcer: No History Surgical Site Infection Following: None - Disposition Have Diagnosis and Disposition been Completed?: Yes Diagnosis: Alcohol dependence, Suicidal ideation Disposition: HOME/ ROUTINE Disposition Time: 22:39 Patient Plan: Discharge Patient Problems: Current Active Problems Problem Status Onset Alcohol dependence Acute Suicidal ideation Acute Condition: IMPROVED Discharge Instructions (ExitCare): Alcohol Intoxication (ED) Additional Instructions: Mr Sanchez, thank you for letting us take care of you today. Your provider was Dr. Clinton. You were treated for Alcohol Intoxication, Suicidal ideation. The emergency medical care you received today was directed at your acute symptoms. If you were prescribed any medication, please fill it and take as directed. It may take several days for your symptoms to resolve. Return to the Emergency Department if your symptoms worsen, do not improve, or if you have any other problems. Please contact your doctor or call one of the physicians/clinics you have been referred to that are listed on the Patient Visit Information form that is included in your discharge packet. Bring any paperwork you were given at discharge with you along with any medications you are taking to your follow up visit. Our treatment cannot replace ongoing medical care by a primary care provider (PCP) outside of the emergency department. Thank you for allowing the [facility] team to be part of your care today. If you had an X-Ray or CT scan: A Radiologist will review the ED reading if any change in treatment is needed we will contact you. If you had a blood, urine, or wound culture: It will take several days for the results, if any change in treatment is needed we will contact you. If you had an STI test: It will take 48 hours for the results. Please call after 1 week if you have not heard back. Referrals: Yakelin Madera, [Primary Care Provider] - Follow up with primary [facility] at [facility] [Outside] - Follow up with primary Forms: Immediately (Lao)
[2017-05-09 15:13] LABS: URINE BACTERIA MOD (NEG); URINE EPITHELIAL CELLS 0 - 2 /hpf (0-5); URINE RBC 0 - 2 /hpf (0-2); URINE WBC 0 - 2 /hpf (0-6)
[2017-05-09 15:40] LABS: ALB/GLOB RATIO 1.5 (1.1-1.8); ALKALINE PHOSPHATASE 82 U/L (38-126); ALT/SGPT 59 U/L (7-56); AST/SGOT 68 U/L (17-59); BILIRUBIN,TOTAL 0.7 mg/dL (0.2-1.3); BLOOD UREA NITROGEN 6 mg/dL (7-21); CALCIUM 8.9 mg/dL (8.4-10.5); CARBON DIOXIDE 29 mmol/L (21-33); CHLORIDE 105 mmol/L (98-107); GFR AFRICAN-AMERICAN > 60; GLUCOSE,RANDOM 105 mg/dL (70-110); SODIUM 145 mmol/L (132-148); TOTAL PROTEIN 7.3 g/dL (5.8-8.3)
[2017-05-09 16:39] VITALS: TEMP 98.2
--- NOTE | 2017-05-09 18:52 | CARD ---
APPROVED REPORT EKG Measurement Heart [id number] <Conclusion> Normal sinus rhythm Incomplete right bundle branch block Borderline ECG
[2017-05-09 21:03] VITALS: O2SAT 99
[2017-05-09 22:10] VITALS: BP 114/74; PULSE 78; RESP 18
== END 2017-05-09 22:52 | disposition home or self-care (01) ==
LOC: ED 13:44
DX: F10.20 Alcohol dependence, uncomplicated (principal); R45.851 Suicidal ideations; F17.210 Nicotine dependence, cigarettes, uncomplicated
CPT/HCPCS: 71010; 80053; 80320; 80324; 80329; 80345; 80346; 80349; 80353; 80358; 80361; 81001; 83992; 85025; 90791; 93005; 96372; 99285; J1200; J1630; J2060

== ENCOUNTER 2017-05-13 00:29 | Emergency (ER) | payer MEDICAID, OTHER ==
--- NOTE | 2017-05-13 00:38 | ED PDOC ---
Arrival/HPI - General Time Seen by Provider: 05/13/17 00:37 Historian: Partner - History of Present Illness Narrative History of Present Illness (Text): 05/13/17 00:37 Mk Sanchez is a 36 year of male brought in by significant other, whose past medical history includes chronic drug and alcohol abuse, who presents to the emergency department with AMS and alcohol intoxication tonight. Patient is nonverbal and is unable to provide any history, although patient is able to open his eyes and has purposeful movements. No further history is available. Past Medical History - Provider Review Nursing Documentation Reviewed: Yes - Past History Past History: No Previous - Infectious Disease Hx of Infectious Diseases: None - Tetanus Immunization Tetanus Immunization: Up to Date, Unknown - Past Medical History Past Medical History: No Previous - Cardiac Hx Hypertension: No - Pulmonary Hx Asthma: Yes Hx Bronchitis: Yes - Neurological Hx Seizures: No - HEENT Hx HEENT Disorder: No - Renal Hx Renal Disorder: No - Endocrine/Metabolic Hx Endocrine Disorders: No - Hematological/Oncological Hx Cancer: No - Integumentary Hx Dermatological Disorder: No - Musculoskeletal/Rheumatological Hx Musculoskeletal Disorders: Yes Hx Falls: Yes Other/Comment: SCIATICA - Gastrointestinal Hx Gastrointestinal Disorders: No - Genitourinary/Gynecological Hx Sexually Transmitted Diseases: No - Psychiatric Hx Anxiety: Yes Hx Bipolar Disorder: Yes Hx Depression: Yes (with suicide attempt since childhood (attempted hanging)) Hx Schizophrenia: Yes Hx Substance Use: Yes - Past Surgical History Past Surgical History: Unable to Obtain - Surgical History Other/Comment: tendon repair (right arm) - Anesthesia Hx Anesthesia: Yes Hx Anesthesia Reactions: No - Suicidal Assessment Feels Threatened In Home Enviroment: No Family/Social History - Physician Review Nursing Documentation Reviewed: Yes Family/Social History: No Known Family HX Smoking Status: Heavy Smoker > 10 Cigarettes Daily Hx Alcohol Use: Yes (ETOH) Frequency of alcohol use: Daily Amount per day: 5 Hx Substance Use: Yes Substance used: Marijuana Hx Substance Use Treatment: No Allergies/Home Meds Allergies/Adverse Reactions: Allergies aspirin Allergy (Verified 05/13/17 00:49) RASH Home Medications: Home Meds Medication Instructions Recorded Confirmed No Known Home Med 05/09/17 05/13/17 Review of Systems - Review of Systems Systems not reviewed;Unavailable: Altered Mental Status Physical Exam Vital Signs Reviewed: Yes Vital Signs Temp Pulse Resp BP Pulse Ox 05/13/17 04:43 82 18 127/91 H 98 05/13/17 02:25 97.7 F 82 18 127/91 H 95 05/13/17 00:52 76 16 134/67 96 Blood Pressure: Normal Pulse: Regular Appearance: Positive for: Unkept Mental Status: Positive for: Lethargic, other (looks about the room; moves extremities in a purposeful manner but remains non verbal) - Systems Exam Head: Present: Atraumatic, Normocephalic Pupils: Present: Pinpoint Extroacular Muscles: Present: EOMI Conjunctiva: Present: Normal Mouth: Present: Moist Mucous Membranes Pharnyx: Present: Normal Nose (External): Present: Atraumatic Nose (Internal): Present: Normal Inspection Neck: Present: Normal Range of Motion Respiratory/Chest: Present: Clear to Auscultation, Good Air Exchange. No: Respiratory Distress, Accessory Muscle Use Cardiovascular: Present: Regular Rate and Rhythm, Normal S1, S2. No: Murmurs Abdomen: Present: Normal Bowel Sounds. No: Tenderness, Distention, Peritoneal Signs Back: Present: Normal Inspection Upper Extremity: Present: Normal Inspection. No: Cyanosis, Edema Lower Extremity: Present: Normal Inspection (uncooperative for formal neuroligcal testing; no obvious cranial deficits; moves all extermities; does not cooperarte for sensory exam). No: Edema Skin: Present: Warm, Dry Psychiatric: Present: Intoxicated Medical Decision Making ED Course and Treatment: 05/13/17 00:38 Impression: 36 year old male who presents to the emergency department with AMS and alcohol intoxication tonight. Differential Diagnosis included but are not limited to: Polysubstance abuse Plan: -- Labs -- Druge screen -- Dextrose, Narcan, and IV fluids -- Reassess and disposition Prior Visits: Notes and results from previous visits were reviewed. Patient was last seen in the emergency department on 05/09/17 brought in by EMS for suicidal ideation. Patient was discharged home. Progress Notes:patient is currently awake and lucid walking to and from the bathroom clinically sober 05/13/17 05:58 - Lab Interpretations Narrative Lab Interpretation (Text): patient's lab work is unremarkable save for a alcohol level in th mid 200s 05/13/17 05:56 Lab Results: 05/13/17 00:43 05/13/17 00:43 Lab Results 05/13/17 00:46: Urine Opiates Screen Negative, Urine Methadone Screen Negative, Ur Barbiturates Screen Negative, Ur Phencyclidine Scrn Negative, Ur Amphetamines Screen Negative, U Benzodiazepines Scrn Negative, U Oth Cocaine Metabols Negative, U Cannabinoids Screen Positive H 05/13/17 00:46: Urine Color Straw, Urine Appearance Clear, Urine pH 6.0, Ur Specific [place] <= 1.005, Urine Protein Negative, Urine Glucose (UA) Negative, Urine Ketones Negative, Urine Blood Negative, Urine Nitrate Negative, Urine Bilirubin Negative, Urine Urobilinogen 0.2, Ur Leukocyte Esterase Negative 05/13/17 00:43: Alcohol, Quantitative 225 H 05/13/17 00:43: Salicylates < 1 L, Acetaminophen < 10.0 L 05/13/17 00:43: Sodium 142, Potassium 3.7, Chloride 105, Carbon Dioxide 27, Anion Gap 13, BUN 8, Creatinine 0.8, Est GFR ( Amer) > 60, Est GFR (Non- Af Amer) > 60, Random Glucose 72, Calcium 8.7, Total Bilirubin 0.5, AST 63 H D, ALT 61 H, Alkaline Phosphatase 75, Total Protein 7.2, Albumin 4.3, Globulin 2.9 , Albumin/Globulin Ratio 1.5 05/13/17 00:43: WBC 5.5, RBC 4.19, Hgb 13.4 L, Hct 39.6 L, MCV 94.5, MCH 32.0, MCHC 33.8, RDW 15.9 H, Plt Count 227, MPV 9.2, Gran % 33.5 L, Lymph % (Auto) 51.1 H, [place] % (Auto) 12.1 H, Eos % (Auto) 3.1, Baso % (Auto) 0.2, Gran # 1.85, Lymph # 2.8, [place] # 0.7 H, Eos # 0.2, Baso # 0.01 I have reviewed the lab results: Yes - EKG Interpretation EKG Interpretation (Text): 05/13/17 02:41 EKG demonstrates normal sinus rhythm at a rate of 70 bpm There are no ectopic beats. all intervals are within normal limits. There are no old EKGs for compari Interpreted by ED Physician: Yes Type: 12 lead EKG Comparison: No previous EKG avail. - Medication Orders Current Medication Orders: Sodium Chloride (Sodium Chloride 0.9%) 1,000 mls @ 30 mls/hr IV .Q24H STA Stop: 05/14/17 01:04 Last Admin: 05/13/17 02:02 Dose: 30 mls/hr eMAR Start Stop Document 05/13/17 02:02 SS (Rec: 05/13/17 02:02 [id number]) Intravenous Solution Start Date 05/13/17 Start Time 02:02 Discontinued Medications Dextrose (Dextrose 50% Inj) 50 ml IVP STAT STA Stop: 05/13/17 02:45 Naloxone HCl (Narcan) 0.8 mg IVP STAT STA Stop: 05/13/17 02:00 Last Admin: 05/13/17 02:01 Dose: 0.8 mg IVP Administration Document 05/13/17 02:01 SS (Rec: 05/13/17 02:01 SS [id number]) Charges for Administration # of IVP Administrations 1 - Scribe Statement The provider has reviewed the documentation as recorded by the Zheng Bolanos Provider Scribe Attestation: All medical record entries made by the Scribe were at my direction and personally dictated by me. I have reviewed the chart and agree that the record accurately reflects my personal performance of the history, physical exam, medical decision making, and the department course for this patient. I have also personally directed, reviewed, and agree with the discharge instructions and disposition. Disposition/Present on Arrival - Present on Arrival Any Indicators Present on Arrival: No History of DVT/PE: No History of Uncontrolled Diabetes: No Urinary Catheter: No History Surgical Site Infection Following: None - Disposition Have Diagnosis and Disposition been Completed?: Yes Diagnosis: Alcohol abuse Disposition: HOME/ ROUTINE Disposition Time: 05:59 Patient Plan: Discharge Patient Problems: Current Active Problems Problem Status Onset Alcohol abuse Acute Condition: FAIR Discharge Instructions (ExitCare): Alcohol Intoxication (ED) Print Language: VIETNAMESE Referrals: Alcoholics Anonymous [Outside] - Follow up with primary [facility] at [facility] [Outside] - Follow up with primary Forms: [employer] ([place])
[2017-05-13 00:50] VITALS: BMI 19.9
[2017-05-13] MEDS ORDERED: Sodium Chloride 0.9% 1,000 ML IV STA (01:05)
[2017-05-13 01:23] LABS: URINE BILIRUBIN NEGATIVE (NEGATIVE); URINE BLOOD NEGATIVE (NEGATIVE); URINE GLUCOSE (UA) NEGATIVE (NEGATIVE); URINE KETONE NEGATIVE (NEGATIVE); URINE LEUKOCYTE ESTERASE NEGATIVE Leu/uL (NEGATIVE); URINE PROTEIN NEGATIVE mg/dL (<30 mg/dL); URINE UROBILINOGEN 0.2 E.U./dL (<1 E.U./dL)
[2017-05-13 01:32] LABS: URINE APPEARANCE CLEAR (CLEAR); URINE COLOR STRAW (YELLOW)
[2017-05-13 01:34] LABS: BASO # 0.01 K/mm3 (0.0-2.0); BASO % 0.2 % (0.0-3.0); EOS # 0.2 (0.0-0.7); EOS % 3.1 % (1.5-5.0); GRAN # 1.85 (1.4-6.5); GRAN % 33.5 % (50.0-68.0); HEMATOCRIT 39.6 % (42.0-52.0); LYMPH # 2.8 (1.2-3.4); LYMPH % 51.1 % (22.0-35.0); MEAN CELL VOLUME 94.5 fl (80.0-105.0); MEAN CORPUSCULAR HGB CONC 33.8 g/dl (31.0-37.0); MEAN PLATELET VOLUME 9.2 fl (7.0-11.0); MONO # 0.7 (0.1-0.6); MONO % 12.1 % (1.0-6.0); RED CELL DISTRIBUTION WIDTH 15.9 % (11.5-14.5); WHITE BLOOD COUNT 5.5 10^3/ul (4.5-11.0)
[2017-05-13 01:40] LABS: ALB/GLOB RATIO 1.5 (1.1-1.8); ALKALINE PHOSPHATASE 75 U/L (38-126); ALT/SGPT 61 U/L (7-56); AST/SGOT 63 U/L (17-59); BILIRUBIN,TOTAL 0.5 mg/dL (0.2-1.3); BLOOD UREA NITROGEN 8 mg/dL (7-21); CALCIUM 8.7 mg/dL (8.4-10.5); CARBON DIOXIDE 27 mmol/L (21-33); CHLORIDE 105 mmol/L (98-107); GFR AFRICAN-AMERICAN > 60; GLUCOSE,RANDOM 72 mg/dL (70-110); POTASSIUM 3.7 mmol/L (3.6-5.0); SODIUM 142 mmol/L (132-148); TOTAL PROTEIN 7.2 g/dL (5.8-8.3)
[2017-05-13] MEDS ORDERED: Naloxone 0.4 mg/ml Inj (Adult) IVP STA (01:59)
[2017-05-13] MEDS ORDERED: Dextrose 50% SYRINGE Inj (50 ml) IVP STA (02:44)
[2017-05-13 04:43] VITALS: TEMP 97.7
[2017-05-13 06:17] VITALS: BP 120/72; PULSE 89; RESP 17; O2SAT 100
--- NOTE | 2017-05-13 17:35 | CARD ---
APPROVED REPORT EKG Measurement Heart [id number] <Conclusion> Normal sinus rhythm Normal ECG
== END 2017-05-13 06:05 | disposition home or self-care (01) ==
LOC: ED 00:29
DX: F10.10 Alcohol abuse, uncomplicated (principal); Y90.7 Blood alcohol level of 200-239 mg/100 ml
CPT/HCPCS: 80053; 80320; 80324; 80329; 80345; 80346; 80349; 80353; 80358; 80361; 81003; 83992; 85025; 93005; 96374; 99285; J2310; J7040

== ENCOUNTER 2017-10-09 19:59 | Inpatient (IN) | payer MEDICAID, OTHER ==
[2017-10-09 20:03] VITALS: BMI 21.7
[2017-10-09 20:17] VITALS: O2SAT 96
--- NOTE | 2017-10-09 20:31 | ED PDOC ---
Arrival/HPI - General Historian: Patient - General Chief Complaint: Psychiatric Evaluation Time Seen by Provider: 10/09/17 20:14 - History of Present Illness Narrative History of Present Illness (Text): 10/09/17 20:27 Patient is a psych transfer from [facility] after an attempted suicide. Patient presented to [facility] after taking 25-30 Klonopin tablets last night. He has an extensive psych history of bipolar disorder, ADHD and Manic Depression. He has attempted to kill himself multiple times, stating that "Life is not fair. I just want it to be over." He states he is supposed on medication , most recently Seroquel, but is not currently taking any medication. He has a history of drug and alcohol abuse. He states he still wants to end his life but does not want to hurt anyone else. Denies any auditory or visual hallucinations. He states his right eye is starting to hurt due to his contacts drying out but has no other complaints at this time. Denies fevers, chills, nausea, vomiting, diarrhea, constipation, chest pain, abdominal pain, headaches , numbness or tingling. 10/09/17 20:36 (DebiTeddy) Past Medical History - Provider Review Nursing Documentation Reviewed: Yes - Past History Past History: No Previous - Infectious Disease Hx of Infectious Diseases: None - Tetanus Immunization Tetanus Immunization: Up to Date, Unknown - Past Medical History Past Medical History: No Previous - Cardiac Hx Cardiac Disorders: No Hx Hypertension: No - Pulmonary Hx Asthma: Yes Hx Bronchitis: Yes - Neurological HX Cerebrovascular Accident: No Hx Seizures: No - HEENT Hx HEENT Disorder: No - Renal Hx Renal Disorder: No - Endocrine/Metabolic Hx Endocrine Disorders: No - Hematological/Oncological Hx Cancer: No - Integumentary Hx Dermatological Disorder: No - Musculoskeletal/Rheumatological Hx Musculoskeletal Disorders: Yes Hx Falls: Yes Other/Comment: SCIATICA - Gastrointestinal Hx Gastrointestinal Disorders: No - Genitourinary/Gynecological Hx Sexually Transmitted Diseases: No - Psychiatric Hx Anxiety: Yes Hx Bipolar Disorder: Yes Hx Depression: Yes (with suicide attempt since childhood (attempted hanging)) Hx Schizophrenia: Yes Hx Substance Use: Yes - Past Surgical History Past Surgical History: Unable to Obtain - Surgical History Other/Comment: tendon repair (right arm) - Anesthesia Hx Anesthesia: Yes Hx Anesthesia Reactions: No - Suicidal Assessment Feels Threatened In Home Enviroment: No Family/Social History - Physician Review Nursing Documentation Reviewed: Yes Family/Social History: Unknown Family HX Smoking Status: Heavy Smoker > 10 Cigarettes Daily Hx Alcohol Use: Yes (ETOH) Amount per day: 5 Hx Substance Use: Yes Substance used: Marijuana Hx Substance Use Treatment: No Allergies/Home Meds Allergies/Adverse Reactions: Allergies No Known Allergies Allergy (Verified 10/09/17 20:03) Home Medications: Home Meds Medication Instructions Recorded Confirmed No Known Home Med 05/09/17 10/09/17 Review of Systems - Physician Review All systems were reviewed & negative as marked: Yes - Review of Systems Constitutional: Normal Eyes: Eye Pain (right eye - irritation due contact drying out) ENT: Normal Respiratory: Normal Cardiovascular: Normal Gastrointestinal: Normal Genitourinary Male: Normal Musculoskeletal: Normal Skin: Normal Neurological: Normal Endocrine: Normal Hemo/Lymphatic: Normal Psychiatric: Suicidal Ideation. absent: Normal, Anxiety, Depression Physical Exam Vital Signs Reviewed: Yes Temperature: Afebrile Blood Pressure: Normal Pulse: Regular Respiratory Rate: Normal Appearance: Positive for: Well-Appearing, Non-Toxic, Comfortable Pain Distress: None Mental Status: Positive for: Alert and Oriented X 3 - Systems Exam Head: Present: Atraumatic, Normocephalic Pupils: Present: PERRL Extroacular Muscles: Present: EOMI Conjunctiva: Present: Normal Mouth: Present: Moist Mucous Membranes Neck: Present: Normal Range of Motion Respiratory/Chest: Present: Clear to Auscultation, Good Air Exchange. No: Respiratory Distress, Accessory Muscle Use Cardiovascular: Present: Regular Rate and Rhythm, Normal S1, S2. No: Murmurs Abdomen: No: Tenderness, Distention, Peritoneal Signs Back: Present: Normal Inspection Upper Extremity: Present: Normal Inspection. No: Cyanosis, Edema Lower Extremity: Present: Normal Inspection. No: Edema Neurological: Present: GCS=15, CN II-XII Intact, Speech Normal Skin: Present: Warm, Dry, Normal Color. No: Rashes Psychiatric: Present: Alert, Oriented x 3, Depressed Mood, Suicidal Ideation. No: Anxious, Agitated, Homicidal Ideation, Delusional, Hallucinations, Intoxicated, Lethargic Vital Signs Temp Pulse Resp BP Pulse Ox 10/09/17 20:08 97.8 F 93 H 16 122/79 96 Medical Decision Making ED Course and Treatment: 10/09/17 20:39 Patient was transferred from [facility]. He will be admitted to Psych unit for suicide ideation. (Teddy Carrera) Pt seen and evaluated with medical records director. Aware and agrees with HPI, clinical findings, plan, and management. Pt, whose past medical history includes bipolar disorder, ADHD, and manic depression, transferred from [facility] for psychiatric admission for suicidal ideation. Pt medically cleared at previous institution and accepted on transfer by psychiatrist telephone ad taker. Pt admitted to [facility] for suicidal ideation under Dr. Wheatley's service. (Elvis Martin) - Medication Orders Current Medication Orders: Acetaminophen (Tylenol 325mg Tab) 650 mg PO Q6 PRN PRN Reason: Fever >100.4 F Al Hydrox/Mg Hydrox/Simethicone (Maalox Plus 30 Ml) 30 ml PO DAILY PRN PRN Reason: Upset Stomach Lorazepam (Ativan) 1 mg PO TID RONAL PRN Reason: Protocol Last Admin: 10/09/17 21:34 Dose: 1 mg Behavioural Document 10/09/17 21:34 EOO (Rec: 10/09/17 21:34 EOO [id number]) Maintenance Maintenance Dose Yes Nonmedicinal Nonmedicinal Interventions Therapeutic Communication Behavior Behavior for Medication: Anxiety Magnesium Hydroxide (Milk Of Magnesia) 30 ml PO DAILY PRN PRN Reason: Constipation Quetiapine Fumarate (Seroquel) 50 mg PO HS RONAL PRN Reason: Protocol Last Admin: 10/09/17 21:34 Dose: 50 mg Behavioural Document 10/09/17 21:34 EOO (Rec: 10/09/17 21:34 EOO [id number]) Maintenance Maintenance Dose Yes Nonmedicinal Nonmedicinal Interventions Therapeutic Communication Trazodone HCl (Desyrel) 50 mg PO HS [facility] Last Admin: 10/09/17 21:34 Dose: 50 mg Disposition/Present on Arrival - Present on Arrival Any Indicators Present on Arrival: No History of DVT/PE: No History of Uncontrolled Diabetes: No Urinary Catheter: No History of Decub. Ulcer: No History Surgical Site Infection Following: None - Disposition Have Diagnosis and Disposition been Completed?: Yes Disposition Time: 20:40 Patient Plan: Admission - Disposition Diagnosis: Suicide attempt by drug ingestion Disposition: HOSPITALIZED Condition: GUARDED
[2017-10-09] MEDS ORDERED: Alum-Mag Hydrox-Simethicone Susp (30 mL) PO PRN (21:06)
[2017-10-09] MEDS ORDERED: Magnesium Hydroxide Susp 30 ml UD PO PRN (21:06)
--- NOTE | 2017-10-09 23:32 | PCM.BM ---
<Jimbo Calderon - Last Filed: 10/09/17 23:28> Treatment Plan Problems - Problems identified on initial assessmt Problem 1 Date Initiated: 10/09/17 Assessment reference: NA Status: Active substance abuse Date Initiated: 10/09/17 Time Initiated: 22:00 Assessment reference: HP Status: Active Treatment assets and liabiliti Patient Assests: cooperative, ADL independent, good support system, good past tx response, good interpersonal skills Patient Liabilities: relationship conflicts, substance abuse - Milieu Protocol Maintain good personal hygiene: daily Encourage regular showers, daily Remind patient to perform daily oral care Maintain personal safety: daily Educate patient to report safety concerns to staff, daily Monitor environment for contraband/sharps Medication safety: Monitor for expected outcome, potential side effects: daily, Assess barriers to learning: daily, Assess readiness for medication education: daily Family Contact Family involvement: Famliy/SO not involved Family contact: Patient agrees to contact Family contact name: Maira Bailey - Goals for Treatment Patient goals for treatment: To get my medications straight Discharge/Continuing Care - Education Needs Education Needs: Patient Medication, Patient Coping Skills - Discharge Discharge Criteria: Free of Suicidal thoughts, Normal sleep pattern <Victor M Chavez - Last Filed: 10/10/17 07:54> Treatment Plan Problems - Problems identified on initial assessmt Hopelessness Date Initiated: 10/10/17 Time Initiated: 07:54 Assessment reference: NA Status: Active Priority: 1 Worthlessness Date Initiated: 10/10/17 Time Initiated: 07:55 Assessment reference: NA Status: Active Priority: 2 Depressive Symptoms Date Initiated: 10/10/17 Time Initiated: 07:55 Assessment reference: NA Status: Active Priority: 3 Ineffective Coping Date Initiated: 10/10/17 Time Initiated: 07:55 Assessment reference: NA Status: Active Priority: 4 <Jesica Wheatley - Last Filed: 10/10/17 14:42> - Diagnosis (1) Mood disorder Status: Acute Interventions: 10/10/17 14:42 Psychoeducation/psychotherapy Psychopharmacology/adjustment of medications as needed/ monitoring possible side effects Evaluate pt on daily basis Compliance with medications and follow up appointments Long acting medication if pt is noncompliant with pill form Suicide and homicide risk assessment and prevention, coping strategies, safety plan Relapse prevention Reduction of symptoms Improve functional status Possible assertive community treatment Cognitive behavioral therapy Family involvement Possible social skill training as outpatient (2) Alcohol use disorder Status: Acute Interventions: 10/10/17 14:43 Monitoring withdrawal symptoms Medical detoxification Pharmacotherapy for alcohol/benzos/opioid dependence Maintaining sobriety Relapse prevention Possible rehabilitation Motivational interviewing 12-step programs: AA meetings Family Contact - Outside Agency Agency 1 Care involvment: Information-sharing Agency contact name: [facility] Agency contact number: [phone] Dr. Jimbo Armstrong Care involvment: Information-sharing Agency contact name: Dr. Jimbo Armstrong, psychiatrist <Maribeth Bernstein - Last Filed: 10/10/17 15:41> Family Contact Family involvement: Family/SO is involved <Fadumo Vázquez - Last Filed: 10/12/17 15:05>
[2017-10-10 08:25] LABS: GLUCOSE,FASTING 88 mg/dL (65-110); HDL CHOLESTEROL 71 mg/dL (29-60)
[2017-10-10 08:37] LABS: LDL CHOLESTEROL 38 mg/dL (0-129)
[2017-10-10] MEDS: Multivitamin With Minerals Tab PO SCH (10:51)
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
[2017-10-10] MEDS: Tobramycin/Dexamethasone (Tobradex) Opth Sol (2.5 ml) OU SCH ×2 (13:29→18:10)
--- NOTE | 2017-10-10 14:42 | PCM.PSYCH ---
Initial Psychiatric Evaluation - Initial Psychiatric Evaluation Type of Admission: Voluntary Legal Status: Capacity (Patient has capacity to sign consent for treatment) Chief Complaint (in patient's own words): "I was not feeling good, I wanted to end it all" Patient's Reaction to Hospitalization: pt was transferred from the [facility] for evaluation of depressive symptoms, s/p overdose on klonopin, possible suicidal attempt. History of Present Illness and Precipitating Events: shortly patient is 36-year-old male, self reported history or schizoaffective disorder, ADHD, patient was transferred from the [facility] status post suicidal attempt, patient overdosed on Klonopin 25-30 pills , patient presented to be depressed, worthless, helpless, was not able to function, worsening of anxiety and paranoia, patient was noncompliant with the medications and follow-up appointments, patient was dealing with the stress by drinking alcohol almost on daily basis, patient requires further evaluation and stabilization and medications titration. patient was seen at the treatment team meeting, patient presented to be anxious , very poor personal hygiene, good ADLs. Patient reported that for the past 3-4 months he was not able to leave the house because of his paranoia and anxiety, patient was noncompliant with the medication for past 3-4 months, as a result patient became very depressed, hopeless, helpless, guilty, patient was not able to sleep, patient was feeling that people are after him, at the same time patient reported that he was not able to leave the house because "I'm not good enough, I don't feel comfortable around people". Patient reported that he was drinking on daily basis, reported at the moment of interview room he is withdrawing from the alcohol as well as benzodiazepines, patient denied visual hallucinations but reported to hear voices telling him to kill himself, paranoid in the crowd that he might be hurt. the other day he was feeling that he wants to hurt the mother of his kids but "I chose to overdose and kill myself", but UDS was negative for benzos. PT reports 5-6 admissions at [facility] and was sent to [facility] due to behaviors. PT reports after he was released, he was living in [facility] and later met the mother of his children. pt reported being officially dx with ADHD in the past. PT reports hx of hospitalization at [facility]; last occurrence 1 year ago. PT reports he was prescribed Seroquel which was not effective and never followed up. PT reports 15 previous suicide attempts. PT reports last admission about 3 years ago in which he swallowed 1 quart of bleach, which did not lead to the hospitalization. PT reports his stomach was pumped and released. PT reports his treatment goal is to "get my mind right and to be able to attend family's bbq's". family history: Unknown Medical history: Patient relatively healthy Lab Results 10/10/17 08:00: Hemoglobin A1c 5.3 10/10/17 08:00: Fasting Glucose 88, Triglycerides 79, Cholesterol 123 L, LDL Cholesterol Direct 38, HDL Cholesterol 71 H 10/10/17 08:00: TSH 3rd Generation 0.83 Vital Signs Temp Pulse Resp BP Pulse Ox 10/10/17 07:00 98.7 F 72 20 133/76 10/09/17 22:27 18 10/09/17 20:08 97.8 F 93 H 16 122/79 96 pt smokes about 1/2 pack a day, nicotine patch offered, counseling provided. cannabis positive UDS benzos are negative (pt claimed he overdosed on benzos) alcohol level was more than 120 [facility] Labs 10/09/17 Current Medications: Active Medications Generic Name Dose Route Start Last Admin Trade Name Princess PRN Reason Stop Dose Admin Acetaminophen 650 mg 10/09/17 21:17 Tylenol 325mg Tab PO Q6 PRN Fever >100.4 F Al Hydrox/Mg Hydrox/Simethicone 30 ml 10/09/17 21:06 Maalox Plus 30 Ml PO DAILY PRN Upset Stomach Artificial Tears 0 ml 10/10/17 12:24 Artificial Tears OU Q1H PRN Dry eyes Chlordiazepoxide 50 mg 10/10/17 14:00 Librium PO Q8 RONAL Protocol Folic Acid 1 mg 10/10/17 10:45 10/10/17 10:51 Folic Acid PO 1 mg DAILY RONAL Administration Magnesium Hydroxide 30 ml 10/09/17 21:06 Milk Of Magnesia PO DAILY PRN Constipation Multivitamins/Minerals 1 tab 10/10/17 10:30 10/10/17 10:51 Therapeutic-M Tab PO 1 tab DAILY RONAL Administration Nicotine 1 patch 10/10/17 12:30 Nicoderm Cq TD DAILY RONAL Quetiapine Fumarate 100 mg 10/10/17 22:00 Seroquel PO AMHS RONAL Thiamine HCl 100 mg 10/10/17 10:30 10/10/17 10:51 Vitamin B1 Tab PO 100 mg DAILY RONAL Administration Tobramycin/Dexamethasone 0 ml 10/10/17 12:30 Tobradex Opht Susp OU 10/11/17 23:59 Q6H RONAL Trazodone HCl 50 mg 10/09/17 22:00 10/09/17 21:34 Desyrel PO 50 mg HS RONAL Administration Past Psychiatric History - Past Psychiatric History Previous Treatment History: Inpatient Prior Professional Help: see HPI Prior Psychiatric Treatment: see HPI [facility]: see HPI Duration: see HPI Nature of Treatment: see HPI Explanation of prior treatment: see HPI History of Abuse: see HPI History of ETOH/Drug Use: see HPI History of Family Illness: see HPI Pertinent Medical Hx (Current Medical&Sleep Prob, Allergies): Allergies Allergy/AdvReac Type Severity Reaction Status Date / Time aspirin Allergy RASH Verified 10/09/17 22:53 weed pollen Allergy RASH Verified 10/09/17 22:53 Clonazepam [Klonopin] 0.5 mg PO BID 10/09/17 QUEtiapine [SEROquel] 300 mg HS 10/09/17 Review of Systems - Review of Systems Systems not reviewed;Unavailable: Acuity of Condition - EENT Eyes: As Per HPI Ears: As Per HPI Nose/Mouth/Throat: As Per HPI - Cardiovascular Cardiovascular: As Per HPI - Respiratory Respiratory: As Per HPI - Gastrointestinal Gastrointestinal: As Per HPI - Genitourinary Genitourinary: As Per HPI - Reproductive: Male Reproductive:Male: As Per HPI - Musculoskeletal Musculoskeletal: As Par HPI - Integumentary Integumentary: As Per HPI - Neurological Neurological: As Per HPI - Psychiatric Psychiatric: As Per HPI - Endocrine Endocrine: As Per HPI - Hematologic/Lymphatic Hematologic: As Per HPI Mental Status Examination - Personal Presentation Personal Presentation: Looks stated age - Affect Affect: Flat (and tearful) - Motor Activity Motor Activity: Psychomotor Retardation (and anxious) - Reliability in Providing Information Reliability in Providing Information: Fair - Speech Speech: Organized - Mood Mood: Depressed, Anxious - Formal Thought Process Formal Thought Process: Hallucinations, Delusions, Paranoia - Hallucinations/Delusions Hallucinations: Auditory Delusions: Persecution - Obsessions/Compulsions Obsessions: None Compulsions: None - Cognitive Functions Orientation: Person, Place, Situation Sensorium: Alert Attention/Concentration: Easily distracted Abstract Thinking: [place] Estimate of Intelligence: Below average Judgement: Intact, as evidence by: Insight regarding need for hospitalization - Risk Risk: Suicidal, Withdrawal, Self-mutilation, Diminished functioning - Strength & Assets Inventory Strength & Assets Inventory: Cooperative, Other (good health, pt has an appt) - Limitations Limitations: Other (noncompliance with meds and f/u appt) DSM 5 DX - DSM 5 DSM 5 Diagnosis: schizoaffective d/o rule out bipolar disorder with psychosis Alcohol abuse Alcohol withdrawal Cannabis abuse ADHD as per history - Recommended/Plan of Treatment Treatment Recommendations and Plan of Treatment: Milieu/structure/supportive therapy Medical consult appreciated, see medical team note for more detailed info, pt most likely has conjunctivitis, started on abx SW consultation for discharge plan and social issues Librium for alcohol withdrawals Multivitamins, thiamine, folic acid Seroquel 100 mg twice a day for almost stabilization and psychosis Trazodone 50 mg at the nighttime for insomnia Wellbutrin for depression and ADHD Family involvement Follow up on labs Will monitor closely Pt was educated about risk/benefits and alternatives of medications, coping strategies (safety plan, suicide prevention), relapse prevention, importance of follow up with psychiatrist and therapist, stay away from drugs/alcohol/smoking Projected ELOS: 7days Prognosis: guarded Discharge Plan and Discharge Criteria: Pt will be not depressed or manic, will be more hopeful, will be not psychotic or anxious, will be not having thoughts of harming self or others, will be tolerating medications well, will not have major side effects, will be able to function, will not pose threat to self or others. - Smoking Cessation Smoking Cessation Initiated: Yes
[2017-10-11] MEDS: Tobramycin/Dexamethasone (Tobradex) Opth Sol (2.5 ml) OU SCH ×4 (00:32→19:00)
[2017-10-11] MEDS: Multivitamin With Minerals Tab PO SCH (08:52)
--- NOTE | 2017-10-11 16:23 | PCM.PYCHPN ---
Psychiatric Progress Note - Psychiatric Progress Note Patient seen today, length of contact: 30min Patient Chief Complaint: "I am feeling very anxious" Problems Identified/Issues Discussed: Suicide/ homicide prevention, past psychiatric h/o, current psychiatric symptoms , medical problems, risk/benefits and alternatives of medications, medications compliance, coping strategies, substance abuse h/o, relapse prevention, importance of follow up with psychiatrist and therapist, discharge plan. Medical Problems: relatively healthy pt's withdrawals are better. Diagnostic Results: Lab Results 10/10/17 08:00: Hemoglobin A1c 5.3 10/10/17 08:00: Fasting Glucose 88, Triglycerides 79, Cholesterol 123 L, LDL Cholesterol Direct 38, HDL Cholesterol 71 H 10/10/17 08:00: TSH 3rd Generation 0.83 10/10/17 08:00: RPR Nonreactive Vital Signs Temp Pulse Resp BP Pulse Ox 10/11/17 06:57 97.4 F L 67 20 84/53 L 10/10/17 15:53 78 107/72 10/10/17 07:00 98.7 F 72 20 133/76 10/09/17 22:27 18 10/09/17 20:08 97.8 F 93 H 16 122/79 96 DSM 5 Symptoms Update: shortly patient is 36-year-old male, self reported history or schizoaffective disorder, ADHD, patient was transferred from the [facility] status post suicidal attempt, patient overdosed on Klonopin 25-30 pills , patient presented to be depressed, worthless, helpless, was not able to function, worsening of anxiety and paranoia, patient was noncompliant with the medications and follow-up appointments, patient was dealing with the stress by drinking alcohol almost on daily basis, patient requires further evaluation and stabilization and medications titration. patient was seen at the treatment team meeting, patient presented to be anxious , very poor personal hygiene, good ADLs. conjunctivitis is much better, patient reported to feel very anxious and restless, this investment underwriter adjusted Neurontin, increase the dose of Seroquel, gave stat dose of Vistaril. Patient still present to be very depressed, anxious, reported passive wish to be . No active plan or intent to kill himself. patient reported that he still hears voices, but denied command type hallucinations. So far patient tolerates medications well, no side effects observed or reported , aims 0, no EPS. Impression: DSM 5 Diagnosis: schizoaffective d/o rule out bipolar disorder with psychosis Alcohol abuse Alcohol withdrawal Cannabis abuse ADHD as per history Medication Change: Yes (Neurontin, Vistaril, Seroquel increased) Medical Record Reviewed: Yes Consults ordered or reviewed: medical consult appreciated for conjunctivitis, antibiotic started Mental Status Examination - Cognitive Function Orientation: Person, Place, Situation Memory: Intact Attention: Poor Concentration: Poor Association: Loose Fund of Knowledge: Poor - Mood Mood: Depressed, Anxious - Affect Affect: Flat (and tearful) - Formal Thought Process Formal Thought Process: Hallucinations, Delusions, Paranoia - Suicidal Ideation Suicidal Ideation: Yes Plan: passive wish to be , nor intent or plan to kill himself - Homicidal Ideation Homicidal Ideation: No Goal/Treatment Plan - Goal/Treatment Plan Need for Continued Stay: Remain at risks for inpatient hospitalization, Severe depression anxiety, Discharge may exacerbated symptoms, Severe functional impairment Progress Toward Problem(s) and Goals/Treatment Plan: Milieu/structure/supportive therapy Medical consult appreciated, see medical team note for more detailed info, pt most likely has conjunctivitis, started on abx SW consultation for discharge plan and social issues Librium for alcohol withdrawals, Librium 25 mg 4 times a day for withdrawals Multivitamins, thiamine, folic acid Seroquel 200 mg twice a day for almost stabilization and psychosis Trazodone 50 mg at the nighttime for insomnia Wellbutrin for depression and ADHD Vistaril as needed Neurontin 300 mg 3 times a day for stabilization cravings Family involvement Follow up on labs Will monitor closely Pt was educated about risk/benefits and alternatives of medications, coping strategies (safety plan, suicide prevention), relapse prevention, importance of follow up with psychiatrist and therapist, stay away from drugs/alcohol/smoking Estimated Date of D/C: 10/17/17
[2017-10-12] MEDS: Multivitamin With Minerals Tab PO SCH (09:28)
--- NOTE | 2017-10-12 16:24 | PCM.PYCHPN ---
Psychiatric Progress Note - Psychiatric Progress Note Patient seen today, length of contact: 30min Patient Chief Complaint: "I am feeling very anxious, restless" Problems Identified/Issues Discussed: Suicide/ homicide prevention, past psychiatric h/o, current psychiatric symptoms , medical problems, risk/benefits and alternatives of medications, medications compliance, coping strategies, substance abuse h/o, relapse prevention, importance of follow up with psychiatrist and therapist, discharge plan. Medical Problems: relatively healthy pt's withdrawals are better. Diagnostic Results: Lab Results 10/10/17 08:00: Hemoglobin A1c 5.3 10/10/17 08:00: Fasting Glucose 88, Triglycerides 79, Cholesterol 123 L, LDL Cholesterol Direct 38, HDL Cholesterol 71 H 10/10/17 08:00: TSH 3rd Generation 0.83 10/10/17 08:00: RPR Nonreactive Vital Signs Temp Pulse Resp BP Pulse Ox 10/11/17 06:57 97.4 F L 67 20 84/53 L 10/10/17 15:53 78 107/72 10/10/17 07:00 98.7 F 72 20 133/76 10/09/17 22:27 18 10/09/17 20:08 97.8 F 93 H 16 122/79 96 DSM 5 Symptoms Update: shortly patient is 36-year-old male, self reported history or schizoaffective disorder, ADHD, patient was transferred from the [facility] status post suicidal attempt, patient overdosed on Klonopin 25-30 pills , patient presented to be depressed, worthless, helpless, was not able to function, worsening of anxiety and paranoia, patient was noncompliant with the medications and follow-up appointments, patient was dealing with the stress by drinking alcohol almost on daily basis, patient requires further evaluation and stabilization and medications titration. patient was seen at the treatment team meeting, patient presented to be anxious , very poor personal hygiene, good ADLs. conjunctivitis is much better, patient reported to feel very anxious and restles ,as per stop has agitation, but no physical aggression. Patient still present to be very depressed, anxious, reported passive wish to be . No active plan or intent to kill himself. patient reported that he still hears voices, but denied command type hallucinations. So far patient tolerates medications well, no side effects observed or reported , aims 0, no EPS. Impression: DSM 5 Diagnosis: schizoaffective d/o rule out bipolar disorder with psychosis Alcohol abuse Alcohol withdrawal Cannabis abuse ADHD as per history Medication Change: Yes (Neurontin and Remeron increased) Medical Record Reviewed: Yes Mental Status Examination - Cognitive Function Orientation: Person, Place, Situation Memory: Intact Attention: Poor Concentration: Poor Association: Loose Fund of Knowledge: Poor - Mood Mood: Depressed, Anxious - Affect Affect: Flat (and tearful) - Formal Thought Process Formal Thought Process: Hallucinations, Delusions, Paranoia - Suicidal Ideation Suicidal Ideation: Yes - Homicidal Ideation Homicidal Ideation: No Goal/Treatment Plan - Goal/Treatment Plan Need for Continued Stay: Remain at risks for inpatient hospitalization, Severe depression anxiety, Discharge may exacerbated symptoms, Severe functional impairment Progress Toward Problem(s) and Goals/Treatment Plan: Milieu/structure/supportive therapy Medical consult appreciated, see medical team note for more detailed info, pt most likely has conjunctivitis, started on abx SW consultation for discharge plan and social issues Librium for alcohol withdrawals, Librium 25 mg 3 times a day for withdrawals Multivitamins, thiamine, folic acid Seroquel 200 mg twice a day for almost stabilization and psychosis Trazodone will be d/c remeron 30mg po hs Wellbutrin for depression and ADHD Vistaril as needed Neurontin 600 mg 3 times a day for stabilization cravings Family involvement Follow up on labs Will monitor closely Pt was educated about risk/benefits and alternatives of medications, coping strategies (safety plan, suicide prevention), relapse prevention, importance of follow up with psychiatrist and therapist, stay away from drugs/alcohol/smoking Estimated Date of D/C: 10/17/17
[2017-10-12] MEDS: Aritificial Tears (15ml) OU PRN (17:48)
[2017-10-13] MEDS: Multivitamin With Minerals Tab PO SCH (08:30)
--- NOTE | 2017-10-13 16:14 | PCM.PYCHPN ---
Psychiatric Progress Note - Psychiatric Progress Note Patient seen today, length of contact: 30min Patient Chief Complaint: "I am feeling very anxious, restless, I acted out earlier" Problems Identified/Issues Discussed: Suicide/ homicide prevention, past psychiatric h/o, current psychiatric symptoms , medical problems, risk/benefits and alternatives of medications, medications compliance, coping strategies, substance abuse h/o, relapse prevention, importance of follow up with psychiatrist and therapist, discharge plan. Medical Problems: relatively healthy pt's withdrawals are better. Diagnostic Results: Lab Results 10/10/17 08:00: Hemoglobin A1c 5.3 10/10/17 08:00: Fasting Glucose 88, Triglycerides 79, Cholesterol 123 L, LDL Cholesterol Direct 38, HDL Cholesterol 71 H 10/10/17 08:00: TSH 3rd Generation 0.83 10/10/17 08:00: RPR Nonreactive Vital Signs Temp Pulse Resp BP Pulse Ox 10/11/17 06:57 97.4 F L 67 20 84/53 L 10/10/17 15:53 78 107/72 10/10/17 07:00 98.7 F 72 20 133/76 10/09/17 22:27 18 10/09/17 20:08 97.8 F 93 H 16 122/79 96 Temp Pulse Resp BP Pulse Ox 97.2 F L 68 20 103/66 96 10/13/17 07:13 10/13/17 07:13 10/13/17 07:13 10/13/17 07:13 10/09/17 20:08 Temp Pulse Resp BP Pulse Ox 97.2 F L 68 20 103/66 96 10/13/17 07:13 10/13/17 07:13 10/13/17 07:13 10/13/17 07:13 10/09/17 20:08 DSM 5 Symptoms Update: shortly patient is 36-year-old male, self reported history or schizoaffective disorder, ADHD, patient was transferred from the [facility] status post suicidal attempt, patient overdosed on Klonopin 25-30 pills , patient presented to be depressed, worthless, helpless, was not able to function, worsening of anxiety and paranoia, patient was noncompliant with the medications and follow-up appointments, patient was dealing with the stress by drinking alcohol almost on daily basis, patient requires further evaluation and stabilization and medications titration. patient was seen at the treatment team meeting, patient presented to be anxious , very poor personal hygiene, good ADLs, patient acted out earlier, as per staff patient has low threshold for rejection from his family. conjunctivitis is much better, patient reported to feel very anxious and restles ,as per stop has agitation, but no physical aggression. pt said he slept better. Patient still present to be very depressed, anxious, reported passive wish to be . No active plan or intent to kill himself. patient reported that he still hears voices, but denied command type hallucinations. So far patient tolerates medications well, no side effects observed or reported , aims 0, no EPS. Impression: DSM 5 Diagnosis: schizoaffective d/o rule out bipolar disorder with psychosis Alcohol abuse Alcohol withdrawal Cannabis abuse ADHD as per history Medication Change: Yes (Remeron, Seroquel, increased, Librium decreased.) Medical Record Reviewed: Yes Mental Status Examination - Cognitive Function Orientation: Person, Place, Situation Memory: Intact Attention: Poor Concentration: Poor Association: Loose Fund of Knowledge: Poor - Mood Mood: Depressed, Anxious - Affect Affect: Flat (and tearful) - Formal Thought Process Formal Thought Process: Hallucinations, Delusions, Paranoia - Suicidal Ideation Suicidal Ideation: Yes - Homicidal Ideation Homicidal Ideation: No Goal/Treatment Plan - Goal/Treatment Plan Need for Continued Stay: Remain at risks for inpatient hospitalization, Severe depression anxiety, Discharge may exacerbated symptoms, Severe functional impairment Progress Toward Problem(s) and Goals/Treatment Plan: Milieu/structure/supportive therapy Medical consult appreciated, see medical team note for more detailed info, pt most likely has conjunctivitis, started on abx SW consultation for discharge plan and social issues Librium for alcohol withdrawals, Librium 25 mg 2 times a day for withdrawals Multivitamins, thiamine, folic acid Seroquel 300 mg twice a day for almost stabilization and psychosis remeron 45mg po hs Wellbutrin for depression and ADHD 100bid Vistaril as needed Neurontin 600 mg 3 times a day for stabilization cravings Family involvement Follow up on labs Will monitor closely Pt was educated about risk/benefits and alternatives of medications, coping strategies (safety plan, suicide prevention), relapse prevention, importance of follow up with psychiatrist and therapist, stay away from drugs/alcohol/smoking Estimated Date of D/C: 10/17/17
[2017-10-14] MEDS: Multivitamin With Minerals Tab PO SCH (08:10)
[2017-10-14] MEDS: Aritificial Tears (15ml) OU PRN (09:57)
[2017-10-14] MEDS: Divalproex 500 mg DR(BID formulation) PO SCH (15:43)
--- NOTE | 2017-10-14 15:54 | PCM.PYCHPN ---
Psychiatric Progress Note - Psychiatric Progress Note Patient seen today, length of contact: 30min Patient Chief Complaint: "I am feeling very anxious, restless, i am on edge, I am holding myself not to hurt anyone, I need help, but voices are gone..." Problems Identified/Issues Discussed: Suicide/ homicide prevention, past psychiatric h/o, current psychiatric symptoms , medical problems, risk/benefits and alternatives of medications, medications compliance, coping strategies, substance abuse h/o, relapse prevention, importance of follow up with psychiatrist and therapist, discharge plan. Medical Problems: relatively healthy pt's withdrawals are better. Diagnostic Results: Lab Results 10/10/17 08:00: Hemoglobin A1c 5.3 10/10/17 08:00: Fasting Glucose 88, Triglycerides 79, Cholesterol 123 L, LDL Cholesterol Direct 38, HDL Cholesterol 71 H 10/10/17 08:00: TSH 3rd Generation 0.83 10/10/17 08:00: RPR Nonreactive Vital Signs Temp Pulse Resp BP Pulse Ox 10/11/17 06:57 97.4 F L 67 20 84/53 L 10/10/17 15:53 78 107/72 10/10/17 07:00 98.7 F 72 20 133/76 10/09/17 22:27 18 10/09/17 20:08 97.8 F 93 H 16 122/79 96 Temp Pulse Resp BP Pulse Ox 97.2 F L 68 20 103/66 96 10/13/17 07:13 10/13/17 07:13 10/13/17 07:13 10/13/17 07:13 10/09/17 20:08 Temp Pulse Resp BP Pulse Ox 97.2 F L 68 20 103/66 96 10/13/17 07:13 10/13/17 07:13 10/13/17 07:13 10/13/17 07:13 10/09/17 20:08 DSM 5 Symptoms Update: shortly patient is 36-year-old male, self reported history or schizoaffective disorder, ADHD, patient was transferred from the [facility] status post suicidal attempt, patient overdosed on Klonopin 25-30 pills , patient presented to be depressed, worthless, helpless, was not able to function, worsening of anxiety and paranoia, patient was noncompliant with the medications and follow-up appointments, patient was dealing with the stress by drinking alcohol almost on daily basis, patient requires further evaluation and stabilization and medications titration. patient was seen at the treatment team meeting, patient presented to be anxious , very poor personal hygiene, good ADLs, patient said that he feels on edge "constantly angry", pt denied thoughts of harming self or others, but "I am holding myself', pt is stressed out because pt's refused to bring clothing and crane from apartment, later on she did. "I don't know why I am cursing or acting out, I do not want to but I did" pt willing to add depakote. conjunctivitis is much better, patient reported to feel very anxious and restles ,as per stop has agitation, but no physical aggression. pt said he slept better. Patient still present to be very depressed, anxious, reported passive wish to be . No active plan or intent to kill himself. patient reported that he still hears voices, but denied command type hallucinations. So far patient tolerates medications well, no side effects observed or reported , aims 0, no EPS. withdrawals are better, pt is on tapering dose of librium. Impression: DSM 5 Diagnosis: schizoaffective d/o rule out bipolar disorder with psychosis Alcohol abuse Alcohol withdrawal Cannabis abuse ADHD as per history Medication Change: Yes (depakote added, seroquel increased) Medical Record Reviewed: Yes Mental Status Examination - Cognitive Function Orientation: Person, Place, Situation Memory: Intact Attention: Poor Concentration: Poor Association: Loose Fund of Knowledge: Poor - Mood Mood: Depressed, Anxious - Affect Affect: Flat (and tearful) - Formal Thought Process Formal Thought Process: Hallucinations, Delusions, Paranoia - Suicidal Ideation Suicidal Ideation: Yes - Homicidal Ideation Homicidal Ideation: No Goal/Treatment Plan - Goal/Treatment Plan Need for Continued Stay: Remain at risks for inpatient hospitalization, Severe depression anxiety, Discharge may exacerbated symptoms, Severe functional impairment Progress Toward Problem(s) and Goals/Treatment Plan: Milieu/structure/supportive therapy Medical consult appreciated, see medical team note for more detailed info, pt most likely has conjunctivitis, started on abx SW consultation for discharge plan and social issues Librium for alcohol withdrawals, Librium 10mg po tid a day for withdrawals, with the plan to taper down Multivitamins, thiamine, folic acid Seroquel 300 mg twice a day for almost stabilization and psychosis remeron 45mg po hs Wellbutrin for depression and ADHD 100bid Vistaril as needed Neurontin 600 mg 3 times a day for stabilization cravings depakote 500mg bid for mood stabilization Family involvement Follow up on labs Will monitor closely Pt was educated about risk/benefits and alternatives of medications, coping strategies (safety plan, suicide prevention), relapse prevention, importance of follow up with psychiatrist and therapist, stay away from drugs/alcohol/smoking Estimated Date of D/C: 10/17/17
[2017-10-15 06:58] VITALS: RESP 20
[2017-10-15] MEDS: Divalproex 500 mg DR(BID formulation) PO SCH (08:00)
[2017-10-15] MEDS: Multivitamin With Minerals Tab PO SCH (08:01)
[2017-10-15] MEDS: Aritificial Tears (15ml) OU PRN (09:41)
--- NOTE | 2017-10-15 14:59 | PCM.PYCHPN ---
Psychiatric Progress Note - Psychiatric Progress Note Patient seen today, length of contact: 25 min Problems Identified/Issues Discussed: Patient is a 36-year-old male, reported history of schizoaffective disorder, ADHD, alcohol abuse, anxiety, noncompliance with medications who was transferred from the [facility] status post suicidal attempt in which he overdosed on 25-30 klonopin tablets. I reviewed assessment and recent notes. Patient was interviewed in the hallway a few times and was observed to be pacing [id number] this morning. He did not appear to be in any physical distress though reported having a lot of anxiety. He repeatedly indicated that "vistaril was not cutting it". Patients affect is anxious, mildly edgy and labile. Patient denies having any hallucinations though still remains very depressed. He reports having suicidal thoughts yesterday however denies having these thoughts today indicating his main issue is anxiety right now. He is oriented x3 and thought process is fairly coherent. Responses are relevant to questioning. Patient is tolerating his medications and denies any new side effects discomfort or pain. Sleep was very restless last night though improved with Benadryl 50 mg at around 2 am. Patient reports that Ambien was very beneficial for him in the past for insomnia. Staff notes indicate that patient is visible and socializing with staff and peers. Appetite is good and there were no major behavioral issues overnight. Behavior still seems brittle and patient requires further medication adjustment for depression, lability, impulsivity and poor sleep. Diagnostic Results: schizoaffective d/o rule out bipolar disorder with psychosis Alcohol abuse Alcohol withdrawal Cannabis abuse ADHD as per history Medication Change: Yes (depakote added, seroquel increased) Medical Record Reviewed: Yes Mental Status Examination - Cognitive Function Orientation: Person, Place, Situation Memory: Intact Attention: Poor Concentration: Poor Association: Loose Fund of Knowledge: Poor - Mood Mood: Depressed, Anxious - Affect Affect: Flat (and tearful) - Formal Thought Process Formal Thought Process: Hallucinations, Delusions, Paranoia - Suicidal Ideation Suicidal Ideation: Yes - Homicidal Ideation Homicidal Ideation: No Goal/Treatment Plan - Goal/Treatment Plan Need for Continued Stay: Remain at risks for inpatient hospitalization, Severe depression anxiety, Discharge may exacerbated symptoms, Severe functional impairment Progress Toward Problem(s) and Goals/Treatment Plan: * c/w current tx and plan * Vitals reviewed and noted below: Selected Entries 10/15/17 06:57 Temperature 98.1 F Pulse Rate 91 H Respiratory 20 Rate Blood Pressure 112/83 * No new weekend labs thus far * Sonata 5 mg HS prn started for insomnia * Dosing of depakote changed to 250 mg AM and 750 mg HS to further help with insomnia. Estimated Date of D/C: 10/17/17
[2017-10-15] MEDS: Divalproex 250 mg DR (BID formulation) PO SCH (21:45)
[2017-10-16] MEDS: Aritificial Tears (15ml) OU PRN (05:14)
[2017-10-16] MEDS: Multivitamin With Minerals Tab PO SCH (08:23)
[2017-10-16] MEDS: Divalproex 250 mg DR (BID formulation) PO SCH ×2 (10:01→21:45)
--- NOTE | 2017-10-16 11:17 | PCM.PYCHPN ---
Psychiatric Progress Note - Psychiatric Progress Note Patient seen today, length of contact: 25 min Problems Identified/Issues Discussed: Patient is a 36-year-old male, reported history of schizoaffective disorder, ADHD, alcohol abuse, anxiety, noncompliance with medications who was transferred from the [facility] status post suicidal attempt in which he overdosed on 25-30 klonopin tablets. I have reviewed assessment and recent notes. Patient was interviewed in the hallway this morning. He is well groomed and oriented x3. Well oriented to circumstances and his thought process is clear and coherent. esponses are relevant to questioning. Patient tells me that he slept better last night. Denies side effects from his medications though still complains mainly of anxiety. His affect remains anxious , mildly edgy and labile. Staff notes indicate that patient is visible and socializing with staff and peers. He was restless and talkative on the unit on Tuesday. He needed some redirection in this respect. On Tuesday afternoon, patient also reported hearing voices telling him to break things. Geodon 20 mg po and Ativan 2 mg po were given. This morning he reported having auditory hallucinations during my interview. It is very unlikely that patient is actually hallucinating. As noted above, he appears too organized during our conversations. Appetite is good and there were no major behavioral issues over the weekend (except for his "hallucinations "). Diagnostic Results: schizoaffective d/o rule out bipolar disorder with psychosis Alcohol abuse Alcohol withdrawal Cannabis abuse ADHD as per history Medication Change: Yes (depakote added, seroquel increased) Medical Record Reviewed: Yes Mental Status Examination - Cognitive Function Orientation: Person, Place, Situation Memory: Intact Attention: Poor Concentration: Poor Association: Loose Fund of Knowledge: Poor - Mood Mood: Depressed, Anxious - Affect Affect: Other (labile) - Formal Thought Process Formal Thought Process: Hallucinations (endorsed hallucinations of voices telling him to break things. Patient is organized and this is unlikely), Delusions, Paranoia - Suicidal Ideation Suicidal Ideation: No - Homicidal Ideation Homicidal Ideation: No Goal/Treatment Plan - Goal/Treatment Plan Need for Continued Stay: Remain at risks for inpatient hospitalization, Severe depression anxiety, Discharge may exacerbated symptoms, Severe functional impairment Progress Toward Problem(s) and Goals/Treatment Plan: * c/w current tx and plan * Vitals reviewed and noted below: 10/16/17 07:30 Temperature 97.8 F Pulse Rate 97 H Respiratory 20 Rate Blood Pressure 121/85 * No new weekend labs * Sonata 5 mg HS prn started for insomnia on 10/15/17 * Dosing of depakote changed to 250 mg AM and 750 mg HS to further help with insomnia on 10/15/17. Estimated Date of D/C: 10/17/17
[2017-10-17 07:27] VITALS: BP 126/86; PULSE 82; TEMP 97.5
[2017-10-17] MEDS: Aritificial Tears (15ml) OU PRN (07:56)
[2017-10-17] MEDS: Multivitamin With Minerals Tab PO SCH (08:11)
[2017-10-17] MEDS: Divalproex 250 mg DR (BID formulation) PO SCH (09:01)
--- NOTE | 2017-10-17 13:33 | PCM.PYCHDC ---
Mental Status Examination - Mental Status Examination Orientation: Person, Place, Situation, Time Memory: Intact Mood: Neutral Affect: Constricted (but reactive and mood congruent) Speech: Appropriate Attention: WNL (much improved) Concentration: WNL (much improved) Association: WNL Fund of Knowledge: Poor (baseline) Formal Thought Process: No Impairment Description of patient's judgement and insight: Pt has improved insight into mental and medical illness, pt was compliant with medications and unit rules and regulations, pt was going to groups, was calm, cooperative, socially appropriate, no behavioral incidents, no agitation, no aggression. Psychotic Thoughts and Behaviors: Pt denied v/a/t hallucinations, denied paranoid ideations, pt does not appear to be psychotic, and thought process is goal directed. Suicidal Ideation: No Current Homicidal Ideation?: No Plan: pt adamantly denied thoughts of harming self or others denied intent or plan. Discharge Summary - Discharge Note Reason for Hospitalization: pt was transferred from the [facility] for evaluation of depressive symptoms, s/p overdose on klonopin, possible suicidal attempt, please see initial evaluation for more detailed information. Psychiatric History (includes Medical, Family, Personal Hx): see HPI Laboratory Data: Lab Results 10/10/17 08:00: Hemoglobin A1c 5.3 10/10/17 08:00: Fasting Glucose 88, Triglycerides 79, Cholesterol 123 L, LDL Cholesterol Direct 38, HDL Cholesterol 71 H 10/10/17 08:00: TSH 3rd Generation 0.83 10/10/17 08:00: RPR Nonreactive Vital Signs Temp Pulse Resp BP Pulse Ox 10/17/17 07:26 97.5 F L 82 20 126/86 10/16/17 15:00 65 96/57 L 10/16/17 07:30 97.8 F 97 H 20 121/85 10/15/17 17:52 83 123/85 10/15/17 06:57 98.1 F 91 H 20 112/83 10/14/17 15:00 84 22 130/89 10/14/17 07:15 97.1 F L 75 20 104/71 10/14/17 07:12 97.1 F L 75 20 104/71 10/13/17 16:00 83 125/86 10/13/17 07:13 97.2 F L 68 20 103/66 10/12/17 16:00 75 109/76 10/12/17 06:57 97.3 F L 67 20 106/69 10/11/17 16:00 75 115/80 10/11/17 06:57 97.4 F L 67 20 84/53 L 10/10/17 15:53 78 107/72 10/10/17 07:00 98.7 F 72 20 133/76 10/09/17 22:27 18 10/09/17 20:08 97.8 F 93 H 16 122/79 96 Consultations:: List each consultation separately and include: 1. Reason for request. 2. Findings. 3. Follow-up Consultations: medical consult appreciated for conjunctivitis, antibiotic started, please see notes for more detailed info Summary of Hospital Course include:: 1. Description of specific treatment plan utilized for patients during their course of treatmen. 2. Summarize the time- course for resolution of acute symptoms and/or regressed behaviors. 3. Describe issues identified and worked on during hospitalization. 4. Describe medication utilized. 5. Describe medical problems identified and treated. 6. Reassessment of suicide risk Summary of Hospital Course: shortly patient is 36-year-old male, self reported history or schizoaffective disorder, ADHD, patient was transferred from the [facility] status post suicidal attempt, patient overdosed on Klonopin 25-30 pills , patient presented to be depressed, worthless, helpless, was not able to function, worsening of anxiety and paranoia, patient was noncompliant with the medications and follow-up appointments, patient was dealing with the stress by drinking alcohol almost on daily basis, patient requires further evaluation and stabilization and medications titration. Initially patient was seen at the treatment team meeting, patient presented to be anxious, very poor personal hygiene, good ADLs. Patient reported that for the past 3-4 months he was not able to leave the house because of his paranoia and anxiety, patient was noncompliant with the medication for past 3-4 months, as a result patient became very depressed, hopeless, helpless, guilty, patient was not able to sleep, patient was feeling that people are after him, at the same time patient reported that he was not able to leave the house because "I'm not good enough, I don't feel comfortable around people". Patient reported that he was drinking on daily basis, reported at the moment of interview room he is withdrawing from the alcohol as well as benzodiazepines, patient denied visual hallucinations but reported to hear voices telling him to kill himself, paranoid in the crowd that he might be hurt. the other day he was feeling that he wants to hurt the mother of his kids but "I chose to overdose and kill myself", but UDS was negative for benzos. PT reports 5-6 admissions at [facility] and was sent to [facility] due to behaviors. PT reports after he was released, he was living in [facility] and later met the mother of his children. pt reported being officially dx with ADHD in the past. PT reports hx of hospitalization at [facility]; last occurrence 1 year ago. PT reports he was prescribed Seroquel which was not effective and never followed up. PT reports 15 previous suicide attempts. PT reports last admission about 3 years ago in which he swallowed 1 quart of bleach, which did not lead to the hospitalization. PT reports his stomach was pumped and released. PT reports his treatment goal is to "get my mind right and to be able to attend family's bbq's". family history: Unknown Medical history: Patient relatively healthy Lab Results 10/10/17 08:00: Hemoglobin A1c 5.3 10/10/17 08:00: Fasting Glucose 88, Triglycerides 79, Cholesterol 123 L, LDL Cholesterol Direct 38, HDL Cholesterol 71 H 10/10/17 08:00: TSH 3rd Generation 0.83 Vital Signs Temp Pulse Resp BP Pulse Ox 10/10/17 07:00 98.7 F 72 20 133/76 10/09/17 22:27 18 10/09/17 20:08 97.8 F 93 H 16 122/79 96 pt smokes about 1/2 pack a day, nicotine patch offered, counseling provided. cannabis positive UDS benzos are negative (pt claimed he overdosed on benzos) alcohol level was more than 120 [facility] 10/09/17 Patient was stabilized on the following medications Librium Librium 10mg po tid a day for withdrawals, pt was on tapering dose Multivitamins, thiamine, folic acid Seroquel 300 mg twice a day for mood stabilization and psychosis remeron 45mg po hs Wellbutrin for depression and ADHD 100bid Vistaril as needed Neurontin 600 mg 3 times a day for stabilization cravings depakote 500mg bid for mood stabilization patient tolerated medications well, no side effects observed or reported, aims 0 , no EPS. pt showed improvement with his mood symptoms, impulsivity, psychosis. Over the course of this hospitalization pt was attending groups, pt also had medication management, had therapeutic milieu. Overall pt improved pt requested to be discharged, pt said that he feels much better and "medications working well", pt denied any angry feelings towards his girlfriend, "We decided to split for now, I will stay in my friend's house". pt denied being depressed, has realistic future oriented plans, pt also does not appear to be psychotic, or anxious, pt was socially appropriate, no behavioral issues, pts insight improved as well and soon pt deemed to be ready for discharge. At the time of the discharge pt denied been depressed, denied thoughts of harming self or others, denied psychotic symptoms, and pt does not appeared to be psychotic, denied been anxious, pt is not in imminent danger to self or others, will be following up at [facility], information about follow up appointment, time and address provided to the pt, it is patient responsibility to follow up with outpatient clinic, PMD as well as specialists (see note for more detailed information). In case pt will need to obtain results of studies pending at discharge pt was provided with contact information of Psychiatric Inpatient unit [phone] as well as Medical Record Department [phone]. Nicotine patch was offered Naltrexone treatment offered, but pt refused Counseling about smoking and alcohol cessation provided AA meetings as well as smoking cessation treatment program information was provided by the pt was provided with prescriptions for all of medications (please see medication reconciliation form) Pt was educated about safety plan in case of worsening of symptoms or in case of suicidal or homicidal ideation call 911 or go to the nearest ER, also was educated to take meds as prescribed and stay away from drugs, pt verbalized understanding. - Diagnosis (1) Mood disorder Current Visit: Yes Status: Chronic Priority: High (2) Alcohol use disorder Current Visit: Yes Status: Chronic Priority: High - Final Diagnosis (DSM 5) Condition upon Discharge: IMPROVED Disposition: HOME/ ROUTINE Follow-up Treatment Plan: At the time of the discharge pt denied been depressed, denied thoughts of harming self or others, denied psychotic symptoms, and pt does not appeared to be psychotic, denied been anxious, pt is not in imminent danger to self or others, will be following up at [facility], information about follow up appointment, time and address provided to the pt, it is patient responsibility to follow up with outpatient clinic, PMD as well as specialists (see note for more detailed information). In case pt will need to obtain results of studies pending at discharge pt was provided with contact information of Psychiatric Inpatient unit [phone] as well as Medical Record Department [phone]. Nicotine patch was offered Naltrexone treatment offered, but pt refused Counseling about smoking and alcohol cessation provided AA meetings as well as smoking cessation treatment program information was provided by the pt was provided with prescriptions for all of medications (please see medication reconciliation form) Pt was educated about safety plan in case of worsening of symptoms or in case of suicidal or homicidal ideation call 911 or go to the nearest ER, also was educated to take meds as prescribed and stay away from drugs, pt verbalized understanding. Prescriptions/Medication Reconciliation: buPROPion SR [Wellbutrin] 100 mg PO BID #30 tab chlordiazePOXIDE [Librium] 10 mg PO BID #6 cap Folic Acid 1 mg PO DAILY #14 tab Gabapentin [Neurontin] 800 mg PO DAILY #45 tab hydrOXYzine Pamoate [Vistaril] 50 mg PO Q8 PRN #45 cap PRN Reason: Anxiety Mirtazapine [Remeron] 45 mg PO HS #14 tab Multimineral/Multivitamin [Therapeutic-M Tab] 1 tab PO DAILY #14 tab Nicotine 14 mg/24 hr [Nicoderm CQ] 1 patch TD DAILY #14 patch Polyethylene Glycol/Polyvinyl [Artificial Tears] 1 uci OU Q1H PRN #1 bottle PRN Reason: Dry Eyes Quetiapine Fumarate [Seroquel] 300 mg PO AMHS #30 tab Thiamine [Vitamin B1 Tab] 100 mg PO DAILY #14 tab Zaleplon [Sonata] 5 mg PO HS PRN #14 cap PRN Reason: Insomnia - Smoking Cessation Smoking Cessation Medication prescribed: Yes - Antipsychotic Medications Pt discharged on 2 or more routine antipsychotic medications: No
== END 2017-10-17 16:06 | disposition home or self-care (01) | DRG 430 ==
LOC: ED 19:59 → ERH 20:24 → PSYC 20:55
PROVIDERS: ADMIT Psychiatry & Neurology Psychiatry; ATTEND Psychiatry & Neurology Psychiatry
PROC: GZ3ZZZZ Medication Management (ICD-10-PCS; principal; 2017-10-09)
DX: F39 Unspecified mood [affective] disorder (principal); F10.239 Alcohol dependence with withdrawal, unspecified; F25.9 Schizoaffective disorder, unspecified; F12.10 Cannabis abuse, uncomplicated; F90.9 Attention-deficit hyperactivity disorder, unspecified type; H10.9 Unspecified conjunctivitis; G47.00 Insomnia, unspecified; F41.9 Anxiety disorder, unspecified; F17.210 Nicotine dependence, cigarettes, uncomplicated; Z91.5 Personal history of self-harm; Z91.14 Patient's other noncompliance with medication regimen

== ENCOUNTER 2018-01-10 22:46 | Inpatient (IN) | payer MEDICAID, SELFPAY ==
[2018-01-10 22:46] VITALS: BMI 21.7
--- NOTE | 2018-01-10 23:56 | ED PDOC ---
Arrival/HPI - General Chief Complaint: Alcohol Ingestion Time Seen by Provider: 01/10/18 23:24 Historian: Patient - History of Present Illness Narrative History of Present Illness (Text): 01/10/18 23:53 A 37 year old male, whose past medical history includes manic depression, bipolar, ADHA, astigmatisum, presents to the emergency department with complaint of chest pain. Patient admits to drinking alcohol stating it relieves his symptoms. Patient reports that he took Oxycodone for his chest pain, but later on stated "I do not take any pain medication." Patient denies fevers, chills, headache, dizziness, shortness of breath, dyspnea on exertion, cough, abdominal pain, nausea, vomiting, diarrhea, back pain, neck pain, urinary/bowel changes, or any other complaint. Time/Duration: Prior to Arrival Symptom Onset: Sudden Symptom Course: Unchanged Activities at Onset: Rest, Light Context: Home Past Medical History - Provider Review Nursing Documentation Reviewed: Yes - Past History Past History: No Previous - Infectious Disease Hx of Infectious Diseases: None - Tetanus Immunization Tetanus Immunization: Up to Date, Unknown - Past Medical History Past Medical History: No Previous - Cardiac Hx Hypertension: No - Pulmonary Hx Asthma: Yes Hx Bronchitis: Yes - Neurological Hx Seizures: No - HEENT Hx HEENT Disorder: No - Renal Hx Renal Disorder: No - Endocrine/Metabolic Hx Endocrine Disorders: No - Hematological/Oncological Hx Cancer: No - Integumentary Hx Dermatological Disorder: No - Musculoskeletal/Rheumatological Hx Falls: No - Gastrointestinal Hx Gastrointestinal Disorders: No - Genitourinary/Gynecological Hx Sexually Transmitted Diseases: No - Psychiatric Hx Anxiety: Yes Hx Bipolar Disorder: Yes Hx Depression: Yes (with suicide attempt since childhood (attempted hanging)) Hx Schizophrenia: Yes Hx Substance Use: Yes - Past Surgical History Past Surgical History: Unable to Obtain - Surgical History Other/Comment: tendon repair (right arm) - Anesthesia Hx Anesthesia: Yes Hx Anesthesia Reactions: No Hx Malignant Hyperthermia: No - Suicidal Assessment Feels Threatened In Home Enviroment: No Family/Social History - Physician Review Nursing Documentation Reviewed: Yes Family/Social History: No Known Family HX Smoking Status: Current Some Days Smoker Hx Alcohol Use: Yes Amount per day: 5 Hx Substance Use: Yes Substance used: Marijuana Hx Substance Use Treatment: No Allergies/Home Meds Allergies/Adverse Reactions: Allergies aspirin Allergy (Verified 01/10/18 23:01) RASH weed pollen Allergy (Verified 01/10/18 23:01) RASH Review of Systems - Physician Review All systems were reviewed & negative as marked: Yes - Review of Systems Constitutional: absent: Fevers Respiratory: absent: SOB, Cough Cardiovascular: Chest Pain. absent: NUNEZ Gastrointestinal: absent: Abdominal Pain, Stool Changes, Diarrhea, Nausea, Vomiting Genitourinary Male: absent: Urinary Output Changes Musculoskeletal: absent: Back Pain, Neck Pain Neurological: absent: Headache, Dizziness Physical Exam - Physical Exam Narrative Physical Exam (Text): 01/10/18 23:56 Gen: VS reviewed, alert, well developed, well nourished, mild distress. Patient appears intoxicated. ENT: Normal pharynx. Eye: EOMI, PERRL. Neck: No JVD, supple, no adenopathy. CV: Regular rate, regular rhythm, no rubs, no murmur, no gallops, S1, S2, pulses equal and strong. Pulm: No distress, clear to auscultation, no wheeze, no rhonchi, breath sounds equal, no rales. Abd: Soft, nontender, no guarding, no rebound, no rigidity, normal bowel sounds. Ext: No edema. Skin: Good color, no rash, no cyanosis. Psych: Responds appropriately to questions, normal affect. Neuro: Oriented x 3, CN2-12 intact grossly, motor intact, sensation intact. Vital Signs Reviewed: Yes Vital Signs Temp Pulse Resp BP Pulse Ox 01/11/18 12:10 97.8 F 68 16 108/68 97 01/11/18 10:56 97.9 F 66 18 110/68 96 01/11/18 09:20 97.7 F 63 18 100/53 L 01/11/18 07:26 97.5 F L 76 18 100 01/11/18 06:13 78 18 122/81 95 01/11/18 04:39 77 18 100 01/10/18 23:04 74 18 118/75 97 Blood Pressure: Normal Pulse: Regular Respiratory Rate: Normal Appearance: Positive for: Well-Appearing, Non-Toxic, Comfortable Pain Distress: None Mental Status: Positive for: Alert and Oriented X 3 Medical Decision Making ED Course and Treatment: 01/11/18 00:01 Impression: A 37 year old male presents to the emergency department with a complaint of chest pain. Patient admits to drinking alcohol this evening. Plan: -- EKG -- Geodon -- Labs -- Reassess and disposition Progress Notes: 01/11/18 06:58 patient seen for alcohol intoxication, patient initially could not be talked down or redirected and required medication to help facilitate medical evaluation. patient found to be hypernatremic, ivf started and the plan is to recheck bloodwork. case endorsed to ed attending dr. wheeler - Lab Interpretations Lab Results: 01/11/18 00:45 01/11/18 00:45 Lab Results 01/11/18 00:45: Salicylates < 1 L, Acetaminophen < 10.0 L 01/11/18 00:45: Sodium 154 H, Potassium 3.5 L, Chloride 112 H, Carbon Dioxide 27 , Anion Gap 18, BUN 6 L, Creatinine 0.8, Est GFR ( Amer) > 60, Est GFR ( Non-Af Amer) > 60, Random Glucose 86, Calcium 8.9, Total Bilirubin 0.7, AST 26, ALT 23, Alkaline Phosphatase 68, Total Protein 7.4, Albumin 4.5, Globulin 2.9, Albumin/Globulin Ratio 1.5 01/11/18 00:45: WBC 5.2, RBC 4.47, Hgb 14.1, Hct 40.8 L, MCV 91.3 D, MCH 31.5, MCHC 34.6, RDW 14.6 H, Plt Count 247, MPV 9.2, Gran % 46.5 L, Lymph % (Auto) 42.5 H, Catron % (Auto) 9.1 H, Eos % (Auto) 1.5, Baso % (Auto) 0.4, Gran # 2.41, Lymph # (Auto) 2.2, Catron # (Auto) 0.5, Eos # (Auto) 0.1, Baso # (Auto) 0.02 01/11/18 00:45: Alcohol, Quantitative 255 H I have reviewed the lab results: Yes - RAD Interpretation Radiology Orders: 01/11/18 02:43 CHEST PORTABLE [RAD] Stat - EKG Interpretation EKG Interpretation (Text): 01/11/18 00:12 EKG: Ordered, reviewed, and independently interpreted the EKG. Rate : 65 BPM Rhythm : NSR Interpretation : Normal QRS. Normal axis. No acute ST- T wave changes. Interpreted by ED Physician: Yes Type: 12 lead EKG - Medication Orders Current Medication Orders: Gabapentin (Neurontin) 300 mg PO TID RONAL PRN Reason: Protocol Last Admin: 01/11/18 17:26 Dose: 300 mg Behavioural Document 01/11/18 17:26 ABO (Rec: 01/11/18 17:26 ABO [id number]) Maintenance Maintenance Dose Yes Lorazepam (Ativan) 2 mg PO Q6H PRN; Protocol PRN Reason: anxiety/agitation Last Admin: 01/11/18 21:12 Dose: 2 mg Behavioural Document 01/11/18 21:12 WP (Rec: 01/11/18 21:13 WP [id number]) Maintenance Maintenance Dose Yes Re-Assess: Reassess Psych Meds Document 01/11/18 22:12 WP (Rec: 01/11/18 22:21 WP [id number]) Reassess Psych Med Effective Mirtazapine (Remeron) 15 mg PO HS [facility] Last Admin: 01/11/18 21:12 Dose: 15 mg Multivitamins/Minerals (Therapeutic-M Tab) 1 tab PO DAILY [facility] Last Admin: 01/11/18 15:30 Dose: 1 tab Pantoprazole Sodium (Protonix Ec Tab) 20 mg PO 0600 RONAL Quetiapine Fumarate (Seroquel) 100 mg PO AMHS RONAL PRN Reason: Protocol Last Admin: 01/11/18 21:12 Dose: 100 mg Behavioural Document 01/11/18 21:12 WP (Rec: 01/11/18 21:12 WP [id number]) Maintenance Maintenance Dose Yes Re-Assess: Reassess Psych Meds Document 01/11/18 22:12 WP (Rec: 01/11/18 22:22 WP [id number]) Reassess Psych Med Effective Thiamine HCl (Vitamin B1 Tab) 100 mg PO DAILY [facility] Last Admin: 01/11/18 15:30 Dose: 100 mg Ziprasidone (Geodon Inj) 20 mg IM Q6H PRN; Protocol PRN Reason: severe agitaiton/psychosis Ziprasidone (Geodon Cap) 20 mg PO Q6H PRN; Protocol PRN Reason: psychosis/agitation Discontinued Medications Sodium Chloride (Sodium Chloride 0.9%) 1,000 mls @ 999 mls/hr IV .Q1H1M STA Stop: 01/11/18 06:35 Last Admin: 01/11/18 06:05 Dose: 999 mls/hr eMAR Start Stop Document 01/11/18 06:05 SS (Rec: 01/11/18 06:05 SS [id number]) Intravenous Solution Start Date 01/11/18 Start Time 06:05 Ziprasidone (Geodon Inj) 20 mg IM STAT STA PRN Reason: Protocol Stop: 01/10/18 23:28 Last Admin: 01/10/18 23:42 Dose: 20 mg IM Administration Charges Document 01/10/18 23:42 SS (Rec: 01/10/18 23:42 SS [id number]) Injection Site MAR Injection Site Right Deltoid Charges for Administration # of IM Administrations 1 Re-Assess: Reassess Psych Meds Document 01/11/18 00:12 ABO (Rec: 01/11/18 15:19 ABO [id number]) Reassess Psych Med Effective - Scribe Statement The provider has reviewed the documentation as recorded by the Scribe Elisha Garcia Provider Scribe Attestation: All medical record entries made by the Scribe were at my direction and personally dictated by me. I have reviewed the chart and agree that the record accurately reflects my personal performance of the history, physical exam, medical decision making, and the department course for this patient. I have also personally directed, reviewed, and agree with the discharge instructions and disposition. Disposition/Present on Arrival - Present on Arrival Any Indicators Present on Arrival: No History of DVT/PE: No History of Uncontrolled Diabetes: No Urinary Catheter: Yes History of Decub. Ulcer: No History Surgical Site Infection Following: None - Disposition Have Diagnosis and Disposition been Completed?: Yes Diagnosis: Alcohol intoxication, Depression, Alcohol abuse Disposition: HOSPITALIZED Disposition Time: :34 Patient Problems: Current Active Problems Problem Status Onset Alcohol abuse Acute Alcohol intoxication Acute Depression Acute Condition: STABLE
[2018-01-11 03:02] LABS: BASO # 0.02 K/mm3 (0.0-2.0); BASO % 0.4 % (0.0-3.0); EOS # 0.1 (0.0-0.7); EOS % 1.5 % (1.5-5.0); GRAN # 2.41 (1.4-6.5); GRAN % 46.5 % (50.0-68.0); HEMOGLOBIN 14.1 g/dL (14.0-18.0); LYMPH # 2.2 (1.2-3.4); LYMPH % 42.5 % (22.0-35.0); MEAN CORPUSCULAR HEMOGLOBIN 31.5 pg (25.0-35.0); MEAN CORPUSCULAR HGB CONC 34.6 g/dl (31.0-37.0); MEAN PLATELET VOLUME 9.2 fl (7.0-11.0); MONO # 0.5 (0.1-0.6); MONO % 9.1 % (1.0-6.0); RBC 4.47 10^6/uL (3.5-6.1); RED CELL DISTRIBUTION WIDTH 14.6 % (11.5-14.5); WHITE BLOOD COUNT 5.2 10^3/ul (4.5-11.0)
[2018-01-11 03:05] LABS: ALB/GLOB RATIO 1.5 (1.1-1.8); ALBUMIN 4.5 g/dL (3.0-4.8); ALT/SGPT 23 U/L (7-56); AST/SGOT 26 U/L (17-59); BLOOD UREA NITROGEN 6 mg/dL (7-21); CALCIUM 8.9 mg/dL (8.4-10.5); GFR AFRICAN-AMERICAN > 60; GFR NON-AFRICAN AMERICAN > 60
[2018-01-11 03:11] LABS: MEAN CELL VOLUME 91.3 fl (80.0-105.0)
[2018-01-11 03:22] LABS: ACETAMINOPHEN < 10.0 ug/ml (10.0-20.0); SALICYLATE < 1 mg/dL (2.0-20.0)
[2018-01-11] MEDS ORDERED: Sodium Chloride 0.9% 1,000 ML IV STA (05:35)
--- NOTE | 2018-01-11 07:35 | ED PDOC ---
Physical Exam - Physical Exam Narrative Physical Exam (Text): 01/11/18 08:55 General: alert/awake, GCS = 15, oriented x 3, resting in bed, uncomfortable, cooperative, interactive; NAD Head: NC/AT EYE: PERRLA, EOMI, sclera anicteric, no nystagmus, no photophobia; visual field intact b/l Facial: WNL Oral: uvula/tongue are midline, no exudate/lesions, no drooling/stridor, no dysphonia; intact dentitions NECK: intact ROM, no midline tenderness, no nuchal rigidity, no meningeal signs ; no step off Chest: CTA b/l, no w/r/r; no tachypenia, no accessory muscle use noted Cardiac: +S1, +S2, no m/r/r, no tachycardia Abdominal: +BS, soft/nd/nt, well nourished patient; no masses/rebound/guarding/ rigidity; no salter's sign, no mcburney's point tenderness Extremities: intact ROM, strength 5/5 grossly intact in all limbs, neurovasc intact b/l; + ambulatory; reflex +2/2; no pitting edema/swelling b/l; no Martha' s sign b/l BACK: no step off, no midline tenderness, NO crepitus, no gross deformities noted; Intact ROM SKIN: cap refill < 1 sec, no ulcerations, no petechiae, no rashes NEURO: CNII-XII WNL, no facial asymmetries, no slurr speech, oriented x 3 NIH stroke scale ~ 0 Psych: normal insight, flat affect; follows command with ease Vital Signs Reviewed: Yes Vital Signs Temp Pulse Resp BP Pulse Ox 01/11/18 07:26 97.5 F L 76 18 100 01/11/18 06:13 78 18 122/81 95 01/11/18 04:39 77 18 100 01/10/18 23:04 74 18 118/75 97 Temperature: Afebrile Blood Pressure: Normal Pulse: Regular Respiratory Rate: Normal Appearance: Positive for: Well-Appearing, Non-Toxic, Comfortable Pain Distress: None - Systems Exam Head: Present: Atraumatic, Normocephalic Medical Decision Making ED Course and Treatment: 01/11/18 07:00 Case endorsed to me by Dr. Varela. Patient is a 37 year old male, whose past medical history includes manic depression, bipolar, ADHA, astigmatisum, with complaint of chest pain/heavy alcohol drinking, severe depression/Suicidal thoughts. Patient admits to drinking alcohol stating it relieves his symptoms. Awaiting soberity/re-assess pt's labs/re-assess patients psych complaint; Patient can be dispositioned accordingly 01/11/18 0850 pt evaluated by PES/psych counselor, pt voluntarily signed in for further psych eval/mgt; pt will be admitted to psych pt is medically cleared for psych eval pt is made aware of his medical results agrees with admission/psych eval/txt Re-evaluation Time: 08:45 Reassessment Condition: Improved - Lab Interpretations Lab Results: 01/11/18 00:45 01/11/18 00:45 Lab Results 01/11/18 00:45: Salicylates < 1 L, Acetaminophen < 10.0 L 01/11/18 00:45: Sodium 154 H, Potassium 3.5 L, Chloride 112 H, Carbon Dioxide 27 , Anion Gap 18, BUN 6 L, Creatinine 0.8, Est GFR ( Amer) > 60, Est GFR ( Non-Af Amer) > 60, Random Glucose 86, Calcium 8.9, Total Bilirubin 0.7, AST 26, ALT 23, Alkaline Phosphatase 68, Total Protein 7.4, Albumin 4.5, Globulin 2.9, Albumin/Globulin Ratio 1.5 01/11/18 00:45: WBC 5.2, RBC 4.47, Hgb 14.1, Hct 40.8 L, MCV 91.3 D, MCH 31.5, MCHC 34.6, RDW 14.6 H, Plt Count 247, MPV 9.2, Gran % 46.5 L, Lymph % (Auto) 42.5 H, Winn % (Auto) 9.1 H, Eos % (Auto) 1.5, Baso % (Auto) 0.4, Gran # 2.41, Lymph # (Auto) 2.2, Winn # (Auto) 0.5, Eos # (Auto) 0.1, Baso # (Auto) 0.02 01/11/18 00:45: Alcohol, Quantitative 255 H I have reviewed the lab results: Yes Interpretation: Abnormal lab values (elevated alcohol/Na) - RAD Interpretation Narrative RAD Interpretations (Text): 01/11/18 09:16 Chest X-Ray - NAD, as read by me Radiology Orders: 01/11/18 02:43 CHEST PORTABLE [RAD] Stat Sports Reporter: ED Physician - Medication Orders Current Medication Orders: Discontinued Medications Sodium Chloride (Sodium Chloride 0.9%) 1,000 mls @ 999 mls/hr IV .Q1H1M STA Stop: 01/11/18 06:35 Last Admin: 01/11/18 06:05 Dose: 999 mls/hr eMAR Start Stop Document 01/11/18 06:05 SS (Rec: 01/11/18 06:05 SS [id number]) Intravenous Solution Start Date 01/11/18 Start Time 06:05 Ziprasidone (Geodon Inj) 20 mg IM STAT STA PRN Reason: Protocol Stop: 01/10/18 23:28 Last Admin: 01/10/18 23:42 Dose: 20 mg IM Administration Charges Document 01/10/18 23:42 SS (Rec: 01/10/18 23:42 SS [id number]) Injection Site MAR Injection Site Right Deltoid Charges for Administration # of IM Administrations 1 - Scribe Statement The provider has reviewed the documentation as recorded by the Scribe Cheryl Radford Provider Scribe Attestation: All medical record entries made by the Scribe were at my direction and personally dictated by me. I have reviewed the chart and agree that the record accurately reflects my personal performance of the history, physical exam, medical decision making, and the department course for this patient. I have also personally directed, reviewed, and agree with the discharge instructions and disposition. Disposition/Present on Arrival - Present on Arrival Any Indicators Present on Arrival: No History of DVT/PE: No History of Uncontrolled Diabetes: No Urinary Catheter: Yes History of Decub. Ulcer: No History Surgical Site Infection Following: None - Disposition Have Diagnosis and Disposition been Completed?: Yes Diagnosis: Alcohol intoxication, Depression, Alcohol abuse Disposition: HOSPITALIZED Disposition Time: 08:50 Patient Plan: Admission Patient Problems: Current Active Problems Problem Status Onset Alcohol intoxication Acute Condition: STABLE Print Language: UKRAINIAN
--- NOTE | 2018-01-11 09:06 | RAD ---
Date of service: 01/11/2018 HISTORY: medical screening COMPARISON: 05/09/2017 FINDINGS: LUNGS: No active pulmonary disease. PLEURA: No significant pleural effusion identified, no pneumothorax apparent. CARDIOVASCULAR: Normal. OSSEOUS STRUCTURES: No significant abnormalities. VISUALIZED UPPER ABDOMEN: Normal. OTHER FINDINGS: None. IMPRESSION: No active disease.
--- NOTE | 2018-01-11 09:35 | CARD ---
APPROVED REPORT Date of service: 01/11/2018 EKG Measurement Heart [id number] <Conclusion> Normal sinus rhythm Nonspecific intraventricular conduction delay Borderline ECG
[2018-01-11 12:19] VITALS: O2SAT 96
[2018-01-11 14:22] LABS: PH,URINE 5.5 (4.7-8.0); URINE BILIRUBIN NEGATIVE (NEGATIVE); URINE BLOOD NEGATIVE (NEGATIVE); URINE GLUCOSE (UA) NEGATIVE (NEGATIVE); URINE LEUKOCYTE ESTERASE NEGATIVE Leu/uL (NEGATIVE); URINE PROTEIN NEGATIVE mg/dL (<30 mg/dL); URINE UROBILINOGEN 0.2 E.U./dL (<1 E.U./dL)
[2018-01-11 14:25] LABS: URINE APPEARANCE CLEAR (CLEAR); URINE COLOR YELLOW (YELLOW)
[2018-01-11 14:28] LABS: BENZODIAZEPINES, UR NEGATIVE (NEGATIVE)
[2018-01-11 14:29] LABS: BARBITURATES, UR NEGATIVE (NEGATIVE); OPIATES, UR NEGATIVE (NEGATIVE); PHENCYCLIDINE, UR NEGATIVE (NEGATIVE)
[2018-01-11] MEDS: Multivitamin With Minerals Tab PO SCH (15:30)
--- NOTE | 2018-01-11 16:14 | PCM.BM ---
<Melanie Hull - Last Filed: 01/11/18 16:11> Treatment Plan Problems - Problems identified on initial assessmt hopelessnes/helplessness Date Initiated: 01/11/18 Time Initiated: 16:12 Assessment reference: NA Status: Active ineffective/coping Date Initiated: 01/11/18 Time Initiated: 16:13 Assessment reference: NA Status: Active altered sleep problem Date Initiated: 01/11/18 Time Initiated: 16:14 Assessment reference: NA Status: Active medication non adherence Date Initiated: 01/11/18 Time Initiated: 16:16 Assessment reference: NA Status: Active Treatment assets and liabiliti Patient Assests: cooperative, ADL independent, good support system, good past tx response, cognitively intact, good interpersonal skills Patient Liabilities: financial problems, substance abuse - Milieu Protocol Maintain good personal hygiene: every shift Encourage regular showers, every shift Remind patient to perform daily oral care, every shift Assist patient to perform ADL's Maintain personal safety: every shift Educate patient to report safety concerns to staff, every shift Monitor environment for contraband/sharps Medication safety: Monitor for expected outcome, potential side effects: every shift, Assess barriers to learning: every shift, Assess readiness for medication education: every shift Discharge/Continuing Care - Education Needs Education Needs: Patient Medication, Patient Diagnosis/Disease Process, Patient Coping Skills, Patient Personal Hygiene/Grooming - Discharge Discharge Criteria: Tolerates medication w/o severe side effects, Free of Suicidal thoughts, Free of paranoid thoughts, Normal sleep pattern, Ability to care for self <Jesica Wheatley - Last Filed: 01/12/18 15:00> - Diagnosis (1) Alcohol use disorder Status: Chronic Interventions: 01/12/18 15:00 Monitoring withdrawal symptoms Medical detoxification Pharmacotherapy for alcohol/benzos/opioid dependence Maintaining sobriety Relapse prevention Possible rehabilitation Motivational interviewing 12-step programs: AA meetings (2) Mood disorder Status: Chronic Interventions: 01/12/18 15:00 Psychoeducation Psychopharmacology/adjustment of medications as needed/ monitoring possible side effects Evaluate pt on daily basis Compliance with medications and follow up appointments Suicide and homicide risk assessment and prevention Relapse prevention Reduction of symptoms Improve functional status Family involvement As outpatient: cognitive behavioral therapy
--- NOTE | 2018-01-12 02:23 | CON ---
Copied To: Jesica Wheatley MD Attending MD: Jesica Wheatley MD DATE: 01/11/2018 HISTORY OF PRESENT ILLNESS: Shortly, Mk Sanchez is 37-year-old male with reported history of depression, history of polysubstance abuse and dependence. The patient was brought into the emergency room by police. The patient was agitated, needed to be medicated with IM Geodon. Psych consult was called for evaluation of the patient. 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 The patient was seen and examined in the emergency room. The patient presented to be sleepy, but easily arousable. The patient said that he feels depressed and hopeless. The patient reported that prior to coming to the hospital, he wanted to overdose on Klonopin. The patient reported that he feels very bad and he wants to still. The patient was willing to sign into the Psychiatric Inpatient Unit and consent was signed by PAS worker later on. The patient reported that he hears voices but not now. Reported that he feels very anxious. The patient reported that he feels his medications include, check pharmacy ____ [phone]. Medications confirmed. The patient was on propranolol 20 mg daily, olanzapine 10 mg daily, trazodone 50 mg daily, hydroxyzine 75 mg daily, pantoprazole 40 mg daily, mirtazapine 30 mg at the nighttime and naltrexone [address] Méndez has prescribed all of these medications, but the patient never filled it. Most likely it was from the previous admission at [facility]. The patient was discharged on 11/03/2017. Vital signs reviewed. Temperature 97.7, pulse is 67, blood pressure 108/68, respirations 18, oxygen saturation is 96. Medications reviewed. We will start Neurontin, Ativan, Remeron, Seroquel as per patient request and p.r.n. medications. Labs reviewed. Most recent was from today. Chemistry reviewed. Sodium 154, potassium 3.5. Urinalysis reviewed. Toxicology positive for alcohol more than 255. MENTAL STATUS EXAM: The patient presented to be disheveled, reported being depressed. No eye contact. Speech was underproductive, low volume. Thought process concrete. Thought content, the patient denied visual, auditory, tactile hallucinations at the moment of the interview. The patient has history of hearing voices and seeing things. Insight and judgment seems to be limited. Impulses are well controlled. IMPRESSION: As per history, schizoaffective disorder, also polysubstance abuse and dependence, rule out delirium stage. PLAN: The patient was willing to sign into the Psychiatric Inpatient Unit. The patient signed consent and went upstairs. At the unit, patient already started to give problems. The patient wants to be discharged immediately, but was able to calm down. Multivitamins, thiamine and folic acid resumed. collaterals needs to be obtained. The patient requires further evaluation and stabilization. Considering the fact that the patient was agitated in the emergency room, required IM Salma, the patient is not safe to go. The patient requires further evaluation and stabilization. Thank you very much for letting me participate in the care of your patient. Jesica Wheatley MD
[2018-01-12] MEDS: Pantoprazole 20 mg EC Tab PO SCH (07:54)
[2018-01-12] MEDS: Multivitamin With Minerals Tab PO SCH (08:51)
--- NOTE | 2018-01-12 15:00 | PCM.PSYCH ---
Initial Psychiatric Evaluation - Initial Psychiatric Evaluation Type of Admission: Voluntary Legal Status: Capacity (patient has capacity to sign consent for treatment) Chief Complaint (in patient's own words): "I was half way yesterday, but I am better, I want to go home..." Patient's Reaction to Hospitalization: pt was admitted for evaluation of possible suicidal ideation which pt verbalized while being intoxicated in ED, pt also reported to be depressed and hopeless. History of Present Illness and Precipitating Events: shortly patient is 37-year-old male, self reported history or schizoaffective disorder, ADHD, patient was brought in by police because pt was intoxicated in the community, in ED pt verbalized thoughts of harming self, pt also was agitated, required IM of [place], pt signed consent for tx and was admitted yesterday, pt was seen by this chief writer as a financial analysis consultant in ED, please ess notes for more detailed information. pt was seen today at the tx team meeting room, good ADLs, good personal hygiene , pt presented much better to compare with yesterday, pt reported that police was involved because pt was intoxicated "they offered me to either go to residential or go to the hospital, of course I choose to go to the hospital". pt said after he was d/c from [facility] last month, he did not take any meds, and not followed up with outpatient provider because "I have no insurance , now I have one". pt submitted 48hr notice yesterday requesting d/c. pt said he is not depressed and yesterday he was "half because I was drunk ", pt said that "I am so sorry it was mistake". pt reported that he wants to be d/c tomorrow because his is coming back from vacation. pt denied hearing voices or seeing things, but has h/o. pt adamantly denied thoughts of harming self or others. as per staff pt does not have any behavioral problems, pt compliant with meds, attends groups. pt reported that he was drunk only "once", no withdrawal symptoms. pt reported that he smokes about a pack a day, nicotine patch offered, but declined. family history: Unknown, pt was adopted when was 6month old. Medical history: He has history of sciatica (nerve pain) and possibly asthma. However, he is stable now. past psych h/o: recent hospitalization to [facility] s/p suicidal attempt. 10/24-11/03/17, h/o bipolar and h/o multiple suicidal attempts in the past. 01/11/18 00:45 01/11/18 00:45 Lab Results 01/11/18 13:55: Urine Opiates Screen Negative, Urine Methadone Screen Negative, Ur Barbiturates Screen Negative, Ur Phencyclidine Scrn Negative, Ur Amphetamines Screen Negative, U Benzodiazepines Scrn Negative, U Oth Cocaine Metabols Negative, U Cannabinoids Screen Positive H 01/11/18 13:55: Urine Color Yellow, Urine Appearance Clear, Urine pH 5.5, Ur Specific [place] 1.015, Urine Protein Negative, Urine Glucose (UA) Negative, Urine Ketones Negative, Urine Blood Negative, Urine Nitrate Negative, Urine Bilirubin Negative, Urine Urobilinogen 0.2, Ur Leukocyte Esterase Negative 01/11/18 00:45: Salicylates < 1 L, Acetaminophen < 10.0 L 01/11/18 00:45: Sodium 154 H, Potassium 3.5 L, Chloride 112 H, Carbon Dioxide 27 , Anion Gap 18, BUN 6 L, Creatinine 0.8, Est GFR ( Amer) > 60, Est GFR ( Non-Af Amer) > 60, Random Glucose 86, Calcium 8.9, Total Bilirubin 0.7, AST 26, ALT 23, Alkaline Phosphatase 68, Total Protein 7.4, Albumin 4.5, Globulin 2.9, Albumin/Globulin Ratio 1.5 01/11/18 00:45: WBC 5.2, RBC 4.47, Hgb 14.1, Hct 40.8 L, MCV 91.3 D, MCH 31.5, MCHC 34.6, RDW 14.6 H, Plt Count 247, MPV 9.2, Gran % 46.5 L, Lymph % (Auto) 42.5 H, [place] % (Auto) 9.1 H, Eos % (Auto) 1.5, Baso % (Auto) 0.4, Gran # 2.41, Lymph # (Auto) 2.2, [place] # (Auto) 0.5, Eos # (Auto) 0.1, Baso # (Auto) 0.02 01/11/18 00:45: Alcohol, Quantitative 255 H Vital Signs Temp Pulse Pulse Resp BP Pulse Ox 01/12/18 06:54 97.4 F L 89 20 97/58 L 01/11/18 16:00 56 L 103/62 01/11/18 14:05 82 22 01/11/18 12:18 97.9 F 67 18 108/68 96 01/11/18 12:10 97.8 F 68 16 108/68 97 01/11/18 10:56 97.9 F 66 18 110/68 96 01/11/18 09:20 97.7 F 63 18 100/53 L 01/11/18 07:26 97.5 F L 76 18 100 01/11/18 06:13 78 18 122/81 95 01/11/18 04:39 77 18 100 01/10/18 23:04 74 18 118/75 97 Current Medications: Active Medications Generic Name Dose Route Start Last Admin Trade Name Freq PRN Reason Stop Dose Admin Gabapentin 300 mg 01/11/18 18:00 01/12/18 12:49 Neurontin PO 300 mg TID RONAL Administration Protocol Lorazepam 1 mg 01/12/18 12:04 Ativan PO TID PRN anxiety/agitation Protocol Mirtazapine 15 mg 01/11/18 22:00 01/11/18 21:12 Remeron PO 15 mg HS RONAL Administration Multivitamins/Minerals 1 tab 01/11/18 14:30 01/12/18 08:51 Therapeutic-M Tab PO 1 tab DAILY RONAL Administration Pantoprazole Sodium 20 mg 01/12/18 06:00 01/12/18 07:54 Protonix Ec Tab PO 20 mg 0600 RONAL Administration Quetiapine Fumarate 100 mg 01/11/18 22:00 01/12/18 09:00 Seroquel PO 100 mg AMHS RONAL Administration Protocol Thiamine HCl 100 mg 01/11/18 14:30 01/12/18 08:52 Vitamin B1 Tab PO 100 mg DAILY RONAL Administration Ziprasidone 20 mg 01/11/18 14:20 Geodon Inj IM Q6H PRN severe agitaiton/psychosis Protocol Ziprasidone 20 mg 01/11/18 14:20 01/12/18 12:49 Geodon Cap PO 20 mg Q6H PRN Administration psychosis/agitation Protocol Past Psychiatric History - Past Psychiatric History Previous Treatment History: Inpatient Prior Professional Help: see HPI Prior Psychiatric Treatment: see HPI At what hospital: see HPI Duration: see HPI Explanation of prior treatment: see HPI History of Abuse: see HPI denied History of ETOH/Drug Use: see HPI History of Family Illness: see HPI Pertinent Medical Hx (Current Medical&Sleep Prob, Allergies): Allergies Allergy/AdvReac Type Severity Reaction Status Date / Time aspirin Allergy RASH Verified 01/12/18 10:13 weed pollen Allergy RASH Verified 01/12/18 10:13 Gabapentin [Neurontin] 800 mg PO DAILY #45 tab 10/17/17 Mirtazapine [Remeron] 45 mg PO HS #14 tab 10/17/17 Quetiapine Fumarate [Seroquel] 300 mg PO AMHS #30 tab 10/17/17 buPROPion SR [Wellbutrin] 100 mg PO BID #30 tab 10/17/17 hydrOXYzine Pamoate [Vistaril] 50 mg PO Q8 PRN #45 cap 10/17/17 Acetaminophen [Tylenol 325mg tab] 650 mg PO Q4 PRN #20 tab 10/21/17 Ibuprofen [Motrin] 600 mg PO Q6 PRN #20 tab 10/21/17 Mirtazapine [Remeron] 30 mg PO HS #14 tab 11/03/17 Naltrexone [Revia] 50 mg PO DAILY #14 tab 11/03/17 OLANZapine [Zyprexa] 10 mg PO HS #14 tab 11/03/17 Pantoprazole [Protonix EC Tab] 40 mg PO DAILY #14 ect 11/03/17 Propranolol [Inderal] 20 mg PO BID #14 tab 11/03/17 hydrOXYzine HCl [Atarax] 25 mg PO BID PRN #30 tab 11/03/17 traZODone [Desyrel] 100 mg PO HS PRN #14 tab 11/03/17 Review of Systems - Review of Systems Systems not reviewed;Unavailable: Acuity of Condition - EENT Eyes: As Per HPI Ears: As Per HPI Nose/Mouth/Throat: As Per HPI - Cardiovascular Cardiovascular: As Per HPI - Respiratory Respiratory: As Per HPI - Gastrointestinal Gastrointestinal: As Per HPI - Genitourinary Genitourinary: As Per HPI - Reproductive: Male Reproductive:Male: As Per HPI - Musculoskeletal Musculoskeletal: As Par HPI - Integumentary Integumentary: As Per HPI - Neurological Neurological: As Per HPI - Psychiatric Psychiatric: As Per HPI - Endocrine Endocrine: As Per HPI - Hematologic/Lymphatic Hematologic: As Per HPI Mental Status Examination - Personal Presentation Personal Presentation: Looks stated age - Affect Affect: Flat - Motor Activity Motor Activity: Calm - Reliability in Providing Information Reliability in Providing Information: Fair - Speech Speech: Organized - Mood Mood: Neutral - Formal Thought Process Formal Thought Process: No Impairment - Cognitive Functions Orientation: Person, Place, Situation, Time Sensorium: Alert Abstract Thinking: [place] Estimate of Intelligence: Below average Judgement: Intact, as evidence by: Insight regarding need for hospitalization - Risk Risk: Diminished functioning - Strength & Assets Inventory Strength & Assets Inventory: Family support, Cooperative, Other (pt is not homeless, good physical health) - Limitations Limitations: Other (poor compliance) DSM 5 DX - DSM 5 DSM 5 Diagnosis: schizoaffective d/o rule out bipolar disorder with psychosis Alcohol abuse Cannabis abuse ADHD as per history - Recommended/Plan of Treatment Treatment Recommendations and Plan of Treatment: Milieu/structure/supportive therapy Medical consult will be considered SW consultation for discharge plan and social issues pt denied chronic alcohol consumptions, no withdrawal symptoms Multivitamins, thiamine, folic acid Seroquel 100 mg twice a day for mood stabilization and psychosis gabapentin 300mg po tid for mood stabilization remeron 15mg po hs for depression and insomnia Family involvement Follow up on labs Will monitor closely Pt was educated about risk/benefits and alternatives of medications, coping strategies (safety plan, suicide prevention), relapse prevention, importance of follow up with psychiatrist and therapist, stay away from drugs/alcohol/smoking pt submitted 48 hr notice will be tomorrow pt does not meet criteria for screening by [facility] Projected ELOS: 7days Prognosis: guarded Discharge Plan and Discharge Criteria: Pt will be not depressed or manic, will be more hopeful, will be not psychotic or anxious, will be not having thoughts of harming self or others, will be tolerating medications well, will not have major side effects, will be able to function, will not pose threat to self or others. - Smoking Cessation Smoking Cessation Initiated: No Reason for not providing: pt refused
[2018-01-13 06:49] VITALS: BP 108/75; PULSE 51; RESP 80; TEMP 98
[2018-01-13] MEDS: Multivitamin With Minerals Tab PO SCH (07:50)
[2018-01-13] MEDS: Pantoprazole 20 mg EC Tab PO SCH (07:50)
--- NOTE | 2018-01-13 16:11 | PCM.PYCHDC ---
Mental Status Examination - Mental Status Examination Orientation: Person, Place, Situation, Time Memory: Intact Mood: Neutral Affect: Broad Speech: Appropriate Attention: WNL Concentration: WNL Association: WNL Fund of Knowledge: WNL Formal Thought Process: No Impairment Description of patient's judgement and insight: Pt has improved insight into mental and medical illness, pt was compliant with medications and unit rules and regulations, pt was going to groups, was calm, cooperative, socially appropriate, no behavioral incidents, no agitation, no aggression. Psychotic Thoughts and Behaviors: Pt denied v/a/t hallucinations, denied paranoid ideations, pt does not appear to be psychotic, and thought process is goal directed. Suicidal Ideation: No Current Homicidal Ideation?: No Plan: pt adamantly denied thoughts of harming self or others denied intent or plan. Discharge Summary - Discharge Note Reason for Hospitalization: pt was admitted for evaluation of possible suicidal ideation which pt verbalized while being intoxicated in ED, pt also reported to be depressed and hopeless. Psychiatric History (includes Medical, Family, Personal Hx): multiple psychiatric admissions, history of suicidal attempts, see HPI Laboratory Data: 01/11/18 00:45 01/11/18 00:45 Lab Results 01/11/18 13:55: Urine Opiates Screen Negative, Urine Methadone Screen Negative, Ur Barbiturates Screen Negative, Ur Phencyclidine Scrn Negative, Ur Amphetamines Screen Negative, U Benzodiazepines Scrn Negative, U Oth Cocaine Metabols Negative, U Cannabinoids Screen Positive H 01/11/18 13:55: Urine Color Yellow, Urine Appearance Clear, Urine pH 5.5, Ur Specific [place] 1.015, Urine Protein Negative, Urine Glucose (UA) Negative, Urine Ketones Negative, Urine Blood Negative, Urine Nitrate Negative, Urine Bilirubin Negative, Urine Urobilinogen 0.2, Ur Leukocyte Esterase Negative 01/11/18 00:45: Salicylates < 1 L, Acetaminophen < 10.0 L 01/11/18 00:45: Sodium 154 H, Potassium 3.5 L, Chloride 112 H, Carbon Dioxide 27 , Anion Gap 18, BUN 6 L, Creatinine 0.8, Est GFR ( Amer) > 60, Est GFR ( Non-Af Amer) > 60, Random Glucose 86, Calcium 8.9, Total Bilirubin 0.7, AST 26, ALT 23, Alkaline Phosphatase 68, Total Protein 7.4, Albumin 4.5, Globulin 2.9, Albumin/Globulin Ratio 1.5 01/11/18 00:45: WBC 5.2, RBC 4.47, Hgb 14.1, Hct 40.8 L, MCV 91.3 D, MCH 31.5, MCHC 34.6, RDW 14.6 H, Plt Count 247, MPV 9.2, Gran % 46.5 L, Lymph % (Auto) 42.5 H, [place] % (Auto) 9.1 H, Eos % (Auto) 1.5, Baso % (Auto) 0.4, Gran # 2.41, Lymph # (Auto) 2.2, [place] # (Auto) 0.5, Eos # (Auto) 0.1, Baso # (Auto) 0.02 01/11/18 00:45: Alcohol, Quantitative 255 H Vital Signs Temp Pulse Pulse Resp BP Pulse Ox 01/13/18 06:48 98.0 F 51 L 80 H 108/75 01/12/18 16:00 52 L 108/64 01/12/18 06:54 97.4 F L 89 20 97/58 L 01/11/18 16:00 56 L 103/62 01/11/18 14:05 82 22 01/11/18 12:18 97.9 F 67 18 108/68 96 01/11/18 12:10 97.8 F 68 16 108/68 97 01/11/18 10:56 97.9 F 66 18 110/68 96 01/11/18 09:20 97.7 F 63 18 100/53 L 01/11/18 07:26 97.5 F L 76 18 100 01/11/18 06:13 78 18 122/81 95 01/11/18 04:39 77 18 100 01/10/18 23:04 74 18 118/75 97 Consultations:: List each consultation separately and include: 1. Reason for request. 2. Findings. 3. Follow-up Consultations: from the medical perspective patient is relatively healthy, was seen by medical team and the emergency room.. Summary of Hospital Course include:: 1. Description of specific treatment plan utilized for patients during their course of treatmen. 2. Summarize the time- course for resolution of acute symptoms and/or regressed behaviors. 3. Describe issues identified and worked on during hospitalization. 4. Describe medication utilized. 5. Describe medical problems identified and treated. 6. Reassessment of suicide risk Summary of Hospital Course: shortly patient is 37-year-old male, self reported history or schizoaffective disorder, ADHD, patient was brought in by police because pt was intoxicated in the community, in ED pt verbalized thoughts of harming self, pt also was agitated, required IM of Geodon, pt signed consent for tx and was admitted yesterday, pt was seen by this mortgage or loan underwriter as a weight loss consultant in ED, please ess notes for more detailed information. initially pt was seen at the tx team meeting room, good ADLs, good personal hygiene, pt presented much better to compare with yesterday, pt reported that police was involved because pt was intoxicated "they offered me to either go to longterm or go to the hospital, of course I choose to go to the hospital". pt said after he was d/c from [facility] last month, he did not take any meds, and not followed up with outpatient provider because "I have no insurance , now I have one". pt submitted 48hr notice 01/11/18 requesting d/c. pt said he is not depressed and yesterday he was "half because I was drunk ", pt said that "I am so sorry it was mistake". pt reported that he wants to be d/c tomorrow because his is coming back from vacation. pt denied hearing voices or seeing things, but has h/o. pt adamantly denied thoughts of harming self or others. as per staff pt does not have any behavioral problems, pt compliant with meds, attends groups. pt reported that he was drunk only "once", no withdrawal symptoms. pt reported that he smokes about a pack a day, nicotine patch offered, but declined. family history: Unknown, pt was adopted when was 6month old. Medical history: He has history of sciatica (nerve pain) and possibly asthma. However, he is stable now. past psych h/o: recent hospitalization to [facility] s/p suicidal attempt. 10/24-11/03/17, h/o bipolar and h/o multiple suicidal attempts in the past. 01/11/18 00:45 01/11/18 00:45 Lab Results 01/11/18 13:55: Urine Opiates Screen Negative, Urine Methadone Screen Negative, Ur Barbiturates Screen Negative, Ur Phencyclidine Scrn Negative, Ur Amphetamines Screen Negative, U Benzodiazepines Scrn Negative, U Oth Cocaine Metabols Negative, U Cannabinoids Screen Positive H 01/11/18 13:55: Urine Color Yellow, Urine Appearance Clear, Urine pH 5.5, Ur Specific [place] 1.015, Urine Protein Negative, Urine Glucose (UA) Negative, Urine Ketones Negative, Urine Blood Negative, Urine Nitrate Negative, Urine Bilirubin Negative, Urine Urobilinogen 0.2, Ur Leukocyte Esterase Negative 01/11/18 00:45: Salicylates < 1 L, Acetaminophen < 10.0 L 01/11/18 00:45: Sodium 154 H, Potassium 3.5 L, Chloride 112 H, Carbon Dioxide 27 , Anion Gap 18, BUN 6 L, Creatinine 0.8, Est GFR ( Amer) > 60, Est GFR ( Non-Af Amer) > 60, Random Glucose 86, Calcium 8.9, Total Bilirubin 0.7, AST 26, ALT 23, Alkaline Phosphatase 68, Total Protein 7.4, Albumin 4.5, Globulin 2.9, Albumin/Globulin Ratio 1.5 01/11/18 00:45: WBC 5.2, RBC 4.47, Hgb 14.1, Hct 40.8 L, MCV 91.3 D, MCH 31.5, MCHC 34.6, RDW 14.6 H, Plt Count 247, MPV 9.2, Gran % 46.5 L, Lymph % (Auto) 42.5 H, [place] % (Auto) 9.1 H, Eos % (Auto) 1.5, Baso % (Auto) 0.4, Gran # 2.41, Lymph # (Auto) 2.2, [place] # (Auto) 0.5, Eos # (Auto) 0.1, Baso # (Auto) 0.02 01/11/18 00:45: Alcohol, Quantitative 255 H Vital Signs Temp Pulse Pulse Resp BP Pulse Ox 01/12/18 06:54 97.4 F L 89 20 97/58 L 01/11/18 16:00 56 L 103/62 01/11/18 14:05 82 22 01/11/18 12:18 97.9 F 67 18 108/68 96 01/11/18 12:10 97.8 F 68 16 108/68 97 01/11/18 10:56 97.9 F 66 18 110/68 96 01/11/18 09:20 97.7 F 63 18 100/53 L 01/11/18 07:26 97.5 F L 76 18 100 01/11/18 06:13 78 18 122/81 95 01/11/18 04:39 77 18 100 01/10/18 23:04 74 18 118/75 97 patient was observed for past 48 hours, patient presented to be alert, oriented , pleasant, corporative, compliant with the medications and unit rules and regulations, patient does not meet the criteria for [facility] screening, patient denied any thoughts of harming himself or others. At the time of the discharge pt denied been depressed, denied thoughts of harming self or others, denied psychotic symptoms, and pt does not appeared to be psychotic, denied been anxious, pt is not in imminent danger to self or others, will be following up [facility] outpatient program of his choice, pt has capacity to do so, he information about follow up appointment, time and address provided to the pt, it is patient responsibility to follow up with outpatient clinic, PMD as well as specialists (see note for more detailed information). In case pt will need to obtain results of studies pending at discharge pt was provided with contact information of Psychiatric Inpatient unit [phone] as well as Medical Record Department [phone]. patient will be discharged AGAINST MEDICAL ADVICE, no meds provided Counseling about smoking and alcohol cessation provided AA meetings as well as smoking cessation treatment program information was provided by the Pt was educated about safety plan in case of worsening of symptoms or in case of suicidal or homicidal ideation call 911 or go to the nearest ER, also was educated to take meds as prescribed and stay away from drugs, pt verbalized understanding. - Diagnosis (1) Alcohol use disorder Status: Chronic Priority: High (2) Mood disorder Status: Chronic Priority: High - Final Diagnosis (DSM 5) Condition upon Discharge: STABLE Disposition: AGAINST MEDICAL ADVICE Follow-up Treatment Plan: At the time of the discharge pt denied been depressed, denied thoughts of harming self or others, denied psychotic symptoms, and pt does not appeared to be psychotic, denied been anxious, pt is not in imminent danger to self or others, will be following up [facility] outpatient program of his choice, pt has capacity to do so, he information about follow up appointment, time and address provided to the pt, it is patient responsibility to follow up with outpatient clinic, PMD as well as specialists (see note for more detailed information). In case pt will need to obtain results of studies pending at discharge pt was provided with contact information of Psychiatric Inpatient unit [phone] as well as Medical Record Department [phone]. patient will be discharged AGAINST MEDICAL ADVICE, no meds provided Counseling about smoking and alcohol cessation provided AA meetings as well as smoking cessation treatment program information was provided by the Pt was educated about safety plan in case of worsening of symptoms or in case of suicidal or homicidal ideation call 911 or go to the nearest ER, also was educated to take meds as prescribed and stay away from drugs, pt verbalized understanding. - Smoking Cessation Smoking Cessation Medication prescribed: No - Antipsychotic Medications Pt discharged on 2 or more routine antipsychotic medications: No
== END 2018-01-13 10:49 | disposition left against medical advice (07) | DRG 743 ==
LOC: ED 22:46 → ERH 01-11 08:42 → PSYC 01-11 12:28
PROVIDERS: ADMIT Psychiatry & Neurology Psychiatry; ATTEND Psychiatry & Neurology Psychiatry
DX: F10.129 Alcohol abuse with intoxication, unspecified (principal); F11.20 Opioid dependence, uncomplicated; F25.9 Schizoaffective disorder, unspecified; F12.10 Cannabis abuse, uncomplicated; F17.210 Nicotine dependence, cigarettes, uncomplicated; F90.9 Attention-deficit hyperactivity disorder, unspecified type; F31.9 Bipolar disorder, unspecified; J45.909 Unspecified asthma, uncomplicated; Z79.899 Other long term (current) drug therapy; Y90.8 Blood alcohol level of 240 mg/100 ml or more